=== PATIENT | female | born 1945 | race Caucasian/White ===

== ENCOUNTER 2016-11-26 12:24 | Emergency (ER) | payer MEDICARE, BC ==
[2016-11-26 12:36] VITALS: BP 152/71
[2016-11-26] MEDS ORDERED: fentaNYL 100 MCG/2 ML SDV IVPUSH ONE (12:56)
[2016-11-26] MEDS ORDERED: Metoclopramide 10 MG/2 ML SDV IVPUSH ONE (12:56)
[2016-11-26] MEDS ORDERED: Glucagon,Human Recombinant 1 MG Vial IVPUSH ONE (12:57)
[2016-11-26] MEDS ORDERED: Sodium Chloride 0.9% 1,000 ML IV SCH (13:00)
--- NOTE | 2016-11-26 13:04 | EDM.PDOC ---
ED HPI GI/ABDOMINAL - General Chief Complaint: Gastrointestinal Problem Stated Complaint: DIFFICULT SWOLLOWING,VOMITING Time Seen by Provider: 11/26/16 12:56 Source of Information: Reports: Patient History Limitations: Reports: No limitations - History of Present Illness INITIAL COMMENTS - FREE TEXT/NARRATIVE: 70-year-old female presents to the ED with obstructed distal esophagus. Patient has to be very careful how she eats for several years. This is felt to be likely due to scleroderma. She cuts her food up into very small pieces and drink slowly. She states last night she ate cottage cheese and pineapple and it became obstructed. Saliva came up a good portion of the night. She tried Jell- O this morning with small amount of yogurt but it came right back up. Associated pain central chest. Had upper GI endoscopy Dr. Hussein about 2 years ago. No stricture was apparently dilated at that time. It was done because of obstruction again. She has remained on pantoprazole since seeing Dr. Hussein 2 years ago. This is for the most part eliminated her GERD. Symptom Onset Date: 11/25/16 Symptom Onset Time: 18:00 Timing/Duration: Reports: Hour(s):, Sudden onset Location: other (Pain the stomach and lower retrosternal chest.) Quality: Reports: cramping, fullness Severity: moderate Improves with: Denies: defecating Worsens with: Reports: other Context: Denies: sick contact, bad/questionable food, out of country travel, recent surgery, recent trauma (Trying to drink anything or eat.) Associated Symptoms (-Female): Reports: denies other symptoms, other (History of the very small pieces of food due to food getting stuck in the lower esophagus for the last 2 years.). Denies: chest pain, back pain, groin pain, shoulder pain, constipation, diarrhea, bloody stools, fever/chills, loss of appetite, malaise, nausea/vomiting - Related Data Allergies/ADRs: Allergies Allergy/AdvReac Type Severity Reaction Status Date / Time No Known Allergies Allergy Verified 09/13/15 11:22 Home Meds: Home Meds Acetaminophen [Tylenol] 650 mg PO Q6HR PRN 09/13/15 [History] Baclofen 10 mg PO Q8HR PRN 09/13/15 [History] ClonazePAM [KlonoPIN] 0.5 mg PO BEDTIME 09/13/15 [History] Denosumab [Prolia] 60 mg SUBCUT ASDIRECTED 09/13/15 [History] Hydroxychloroquine Sulfate [Plaquenil] 200 mg PO DAILY 09/13/15 [History] NIFEdipine [Nifedipine ER] 30 mg PO DAILY 09/13/15 [History] Nortriptyline 50 mg PO DAILY 09/13/15 [History] Pantoprazole Sodium [Protonix] 40 mg PO BID 09/13/15 [History] Propylene Glycol/Peg 400 [Systane 0.3-0.4% Eye Drops] 1 drop EYEBOTH DAILY 09/13 [History] traMADol HCl [Ultram] 50 mg PO Q6HR PRN 09/13/15 [History] Letrozole [Femara] 1 tab PO DAILY 09/15/15 [History] Sertraline [Zoloft] 1 tab PO DAILY 09/15/15 [History] Past Medical History HEENT History: Reports: Impaired vision Other HEENT History: wears glasses, oral surgery, dysphagia Cardiovascular History: Reports: Other (see below) (Abnormal ECG suggesting an old anteroseptal myocardial infarction as well as an older peer wall myocardial infarction. Patient has no history of one myocardial infarction) Other Cardiovascular History: lower extremity edema Gastrointestinal History: Reports: Diverticulosis, GERD Other Gastrointestinal History: peptic ulcer disease, diaphramatic hernia, esophogeal ring, hematochezia, melena Musculoskeletal History: Reports: Fibromyalgia, Osteoarthritis, Osteoporosis, RA (Especially affecting her hands On plaquenil for scleroderma and RA.), Other (see below) (Scleroderma) Other Musculoskeletal History: reynauds phenomenon Hematologic History: Reports: Anemia Oncologic (Cancer) History: Reports: Breast, Other (see below) (Recurrence of endometrioma in her lower abdomen requiring radiation therapy last year. The endometrioma was compressing the iliac vessels causing edema of her left lower extremity. The tumor apparently has shrunk dramatically after radiation therapy. Diarrhea there was radiation induced is now much better.) Other Oncologic History: endometrial cancer grade I adenocarcinoma Dermatologic History: Reports: Scleroderma - Past Surgical History Cardiovascular Surgical History: Reports: Other (see below) (Port-A-Cath remains right upper anterior chest.) Other Female Surgeries/Procedures: L breast lumpectomy Other Musculoskeletal Surgeries/Procedures:: back surgery, foot surgery Social & Family History - Tobacco Use Smoking Status *Q: Never Smoker Second Hand Smoke Exposure: No - Caffeine Use Caffeine Use: Reports: Coffee - Alcohol Use Days Per Week of Alcohol Use: 0 Number of Drinks Per Day: 0 Total Drinks Per Week: 0 - Recreational Drug Use Recreational Drug Use: No Drug Use in Last 12 Months: No - Living Situation & Occupation Occupation: retired ED ROS GENERAL - Review of Systems Review Of Systems: See Below Constitutional: Denies: fever, chills, malaise, weakness, fatigue, decreased appetite, weight loss HEENT: Reports: No symptoms Respiratory: Reports: No Symptoms Cardiovascular: Reports: No symptoms Endocrine: Reports: no symptoms GI/Abdominal: Reports: Abdominal pain : Reports: frequency, other (Recurrence of endometrioma after having the uterus resected for endometriosis. It's caused compression of the left internal iliac vessels and edema of her left lower extremity about a year ago. She required extensive radiotherapy across her abdomen to shrink this tumor. So far the tumor has shown full regression..) Musculoskeletal: Reports: no symptoms Skin: Reports: no symptoms Neurological: Reports: No Symptoms Psychiatric: Reports: No symptoms Immunologic: Reports: no symptoms ED EXAM, GI/ABD - Physical Exam Exam: See Below Exam Limited By: No limitations General Appearance: alert, WD/WN, no apparent distress Eyes: bilateral: normal appearance (No jaundice) Throat/Mouth: Normal inspection, Normal lips, Normal teeth, Normal oropharynx Head: atraumatic, normocephalic Neck: normal inspection, supple, non-tender, full range of motion. No: carotid bruit, lymphadenopathy (L), lymphadenopathy (R), thyromegaly Respiratory/Chest: no respiratory distress, lungs clear, normal breath sounds, no accessory muscle use, chest non-tender, respiratory distress (Mild tachypnea due to being anxious.) Cardiovascular: normal peripheral pulses, regular rate, rhythm, no edema, no gallop, no murmur, tachycardia GI/Abdominal: normal bowel sounds, soft, non tender, no organomegaly, no abnormal bruit, no mass, tenderness (Only in the epigastrium and mild.) Back Exam: normal inspection, full range of motion. No: CVA tenderness (L), CVA tenderness (R) Extremities: normal inspection, normal range of motion, non-tender, no pedal edema, normal capillary refill Neurological: alert, oriented, CN II-XII intact, normal cognition, normal gait Psychiatric: normal affect, normal mood Skin Exam: Warm, Dry, Intact, Normal color, No rash Course - Vital Signs Last Recorded V/S: Last Vital Signs Temp 37.0 C 11/26/16 12:34 Pulse 102 H 11/26/16 12:34 Resp 20 11/26/16 12:34 BP 152/71 H 11/26/16 12:34 Pulse Ox 100 11/26/16 12:34 - Orders/Labs/Meds Orders: Active Orders 24 hr Category Date Time Status EKG Documentation Completion [RC] STAT Care 11/26/16 13:08 Active CBC WITH MANUAL DIFF [HEME] Stat Lab 11/26/16 13:20 Results COMPREHENSIVE METABOLIC PN,CMP [CHEM] Stat Lab 11/26/16 13:20 Received INR,PT,PROTHROMBIN TIME [COAG] Stat Lab 11/26/16 13:20 Received Sodium Chloride 0.9% [Normal Saline] 1,000 ml Med 11/26/16 13:00 Active IV ASDIRECTED Medication Orders Sodium Chloride (Normal Saline) 1,000 mls @ 150 mls/hr IV ASDIRECTED RASHID Last Admin: 11/26/16 13:22 Dose: 150 mls/hr Labs: Laboratory Tests 11/26/16 Range/Units 13:20 WBC 6.56 (3.98-10.04) K/mm3 RBC 4.36 (3.98-5.22) M/mm3 Hgb 11.8 (11.2-15.7) gm/L Hct 36.7 (34.1-44.9) % MCV 84.2 (79.4-94.8) fl MCH 27.1 (25.6-32.2) pg MCHC 32.2 (32.2-35.5) g/dl RDW Std Deviation 46.2 (36.4-46.3) fL Plt Count 288 (182-369) K/mm3 MPV 9.4 (9.4-12.3) fl Meds: Medications Generic Name Dose Route Start Last Admin Trade Name Freq PRN Reason Stop Dose Admin Sodium Chloride 1,000 mls @ 150 mls/hr 11/26/16 13:00 11/26/16 13:22 Normal Saline IV 150 mls/hr ASDIRECTED RASHID Administration Discontinued Medications Generic Name Dose Route Start Last Admin Trade Name Etelvina PRN Reason Stop Dose Admin Fentanyl 50 mcg 11/26/16 12:56 11/26/16 13:25 Sublimaze IVPUSH 11/26/16 12:57 50 mcg ONETIME ONE Administration Glucagon 1 mg 11/26/16 12:57 11/26/16 13:32 Glucagen IVPUSH 11/26/16 12:58 1 mg ONETIME ONE Administration Metoclopramide HCl 7.5 mg 11/26/16 12:56 11/26/16 13:22 Reglan IVPUSH 11/26/16 12:57 7.5 mg ONETIME ONE Administration - Radiology Interpretation Free Text/Narrative:: 70-year-old female presents to the ED with obstruction of the lower esophagus. She's had troubles for many years with food getting hung up or stuck in the lower part of the esophagus. She did have an EGD with Dr. Hussein about 2 years ago because of food bolus obstruction.. No recognized picture was identified at that time and certainly nothing that was suggested to be further dilated. Patient is very careful how she eats gets up her food into very small particles. Last night she was eating cottage cheese and pineapple. She developed esophageal obstruction which has failed to clear. Saliva is regurgitating back up she tried a small quantity of Jell-O and yogurt this morning and it came right back up as well. She is pain-free at present. She remains on pantoprazole daily since following up with Dr. Hussein 2 years ago and really has very little in the way of GERD symptoms. Plan Will try IV medications to see if we can open the esophagus. Given Reglan 7.5 mg IV with fentanyl 50 mcg IV followed by glucagon 1 mg IV and small dorsal clear pop. iF This fails I will call the surgeon. - Re-Assessments/Exams Free Text/Narrative Re-Assessment/Exam: 11/26/16 13:56 patient is now able to swallow without difficulties. She's drank a whole can of [place] clear pop without issue. Also able to takes water without any issue. She'll therefore be discharged from the ED. Advised strongly to follow up with Dr. Hussein in regards to repeat EGD to see how bad the stricture is and whether or not it can be dilated. Departure - Departure Time of Disposition: 13:58 Disposition: Home, Self-Care 01 Condition: fair Clinical Impression: Rheumatoid arthritis Impacted esophageal foreign body Qualifiers: Encounter type: initial encounter Qualified Code(s): T18.108A - Unspecified foreign body in esophagus causing other injury, initial encounter Referrals: Enoc Torres MD [Primary Care Provider] - Forms: ED Department Discharge Additional Instructions: Evaluation in the emergency room today in regards to obstruction of the lower part of your food pipe from food eaten last evening. This was pineapple and cottage cheese. Recognized chronic problem with having to eat small pieces of food and slowly so as to prevent obstruction of the food pipe. This is secondary to your disease process scleroderma. You're treated with medications in an effort to open up the lower part of the food pipe which did work in the report to drink quite freely before leaving the ED. Just today that he mostly that of fluid such as Jell-O ,yogurt ,milk shake and other soft diet until the swelling of the area goes down. I would suggest making appointments to see Dr. Hussein with a view to repeat upper GI endoscopy to see if there is a significant stricture at the distal aspect of the food pipe that could be dilated in in fact similar occurrences from occurring. - My Orders Last 24 Hours: My Active Orders 11/26/16 13:00 Sodium Chloride 0.9% [Normal Saline] 1,000 ml IV ASDIRECTED 11/26/16 13:08 EKG Documentation Completion [RC] STAT 11/26/16 13:20 CBC WITH MANUAL DIFF [HEME] Stat COMPREHENSIVE METABOLIC PN,CMP [CHEM] Stat INR,PT,PROTHROMBIN TIME [COAG] Stat - Assessment/Plan Last 24 Hours: My Active Orders 11/26/16 13:00 Sodium Chloride 0.9% [Normal Saline] 1,000 ml IV ASDIRECTED 11/26/16 13:08 EKG Documentation Completion [RC] STAT 11/26/16 13:20 CBC WITH MANUAL DIFF [HEME] Stat COMPREHENSIVE METABOLIC PN,CMP [CHEM] Stat INR,PT,PROTHROMBIN TIME [COAG] Stat
== END 2016-11-26 14:17 | disposition home or self-care (01) ==
LOC: JD.ED 12:24
DX: T18.108A Unspecified foreign body in esophagus causing other injury, initial encounter (principal); M06.9 Rheumatoid arthritis, unspecified; K21.9 Gastro-esophageal reflux disease without esophagitis; Z98.890 Other specified postprocedural states; Z79.899 Other long term (current) drug therapy; X58.XXXA Exposure to other specified factors, initial encounter
CPT/HCPCS: 36415; 80053; 85025; 85610; 93005; 96361; 96374; 96375; 99284; J1610; J2765; J3010; J7040

== ENCOUNTER 2017-01-05 11:16 | Emergency (ER) | payer MEDICARE, BC ==
[2017-01-05] MEDS ORDERED: Metoclopramide 10 MG/2 ML SDV IVPUSH ONE (12:01)
[2017-01-05] MEDS ORDERED: fentaNYL 100 MCG/2 ML SDV IVPUSH ONE ×2 (12:02→12:13)
--- NOTE | 2017-01-05 12:07 | EDM.PDOC ---
ED HPI GI/ABDOMINAL - General Chief Complaint: Gastrointestinal Problem Stated Complaint: CANT SWALLOW Time Seen by Provider: 01/05/17 12:00 Source of Information: Reports: Patient History Limitations: Reports: No limitations - History of Present Illness INITIAL COMMENTS - FREE TEXT/NARRATIVE: 71-year-old female presents to the ED with a foreign body stuck in her lower esophagus. She has retrosternal chest pain in the lower one third of the sternum. This is happened to her many times in the past. She her primary diagnosis is that of scleroderma. She states last night she had a small piece of steak that she felt get hung up for a period of time. She was able date sounds but some pieces of strawberries and fluids after this and felt that the obstruction had relieved itself. This morning she had cottage cheese for breakfast at 10:00. Since then she is regurgitated and vomited saliva and mucus. Nothing will go down at this time. I had seen her a month or so ago and we were able to relieve the obstruction with medication. Symptom Onset Date: 01/05/17 Symptom Onset Time: 10:00 Timing/Duration: Reports: Hour(s):, Sudden onset Location: other (Lower retrosternal chest and epigastrium) Quality: Reports: ache, fullness, other Severity: mild (Pressure) Improves with: Reports: other (Nothing makes it better. Vomiting relieves the symptoms.) Worsens with: Reports: other (Trying to swallow.) Context: Reports: other (Scleroderma affecting the esophagus). Denies: sick contact, bad/questionable food, out of country travel, recent trauma Associated Symptoms (-Female): Reports: denies other symptoms, chest pain. 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) - Related Data Allergies/ADRs: Allergies Allergy/AdvReac Type Severity Reaction Status Date / Time No Known Allergies Allergy Verified 01/05/17 11:39 Home Meds: Home Meds Acetaminophen [Tylenol] 650 mg PO Q6HR PRN 09/13/15 [History] Baclofen 10 mg PO Q8HR PRN 09/13/15 [History] ClonazePAM [KlonoPIN] 0.5 mg PO BEDTIME 09/13/15 [History] Denosumab [Prolia] 60 mg SUBCUT ASDIRECTED 09/13/15 [History] Hydroxychloroquine Sulfate [Plaquenil] 200 mg PO DAILY 09/13/15 [History] NIFEdipine [Nifedipine ER] 30 mg PO DAILY 09/13/15 [History] Nortriptyline 50 mg PO DAILY 09/13/15 [History] Pantoprazole Sodium [Protonix] 40 mg PO BID 09/13/15 [History] Propylene Glycol/Peg 400 [Systane 0.3-0.4% Eye Drops] 1 drop EYEBOTH DAILY 09/13 [History] traMADol HCl [Ultram] 50 mg PO Q6HR PRN 09/13/15 [History] Letrozole [Femara] 1 tab PO DAILY 09/15/15 [History] Sertraline [Zoloft] 1 tab PO DAILY 09/15/15 [History] Past Medical History HEENT History: Reports: Impaired vision Other HEENT History: wears glasses, oral surgery, dysphagia Cardiovascular History: Reports: Other (see below) Other Cardiovascular History: lower extremity edema Gastrointestinal History: Reports: Diverticulosis, GERD Other Gastrointestinal History: peptic ulcer disease, diaphramatic hernia, esophogeal ring, hematochezia, melena Musculoskeletal History: Reports: Fibromyalgia, Osteoarthritis, Osteoporosis, RA , Other (see below) Other Musculoskeletal History: reynauds phenomenon . 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 Hematologic History: Reports: Anemia Oncologic (Cancer) History: Reports: Breast (Left breast lumpectomy with sentinel node removal. Treated with radiation and chemotherapy.), Other (see below) Other Oncologic History: endometrial cancer grade I adenocarcinoma Dermatologic History: Reports: Scleroderma - Past Surgical History Other Female Surgeries/Procedures: L breast lumpectomy Other Musculoskeletal Surgeries/Procedures:: back surgery, foot surgery Social & Family History - Tobacco Use Smoking Status *Q: Never Smoker Second Hand Smoke Exposure: No - Caffeine Use Caffeine Use: Reports: Coffee - Alcohol Use Days Per Week of Alcohol Use: 0 Number of Drinks Per Day: 0 Total Drinks Per Week: 0 - Recreational Drug Use Recreational Drug Use: No Drug Use in Last 12 Months: No - Living Situation & Occupation Occupation: retired ED ROS GENERAL - Review of Systems Review Of Systems: See Below Constitutional: Denies: fever, chills, malaise, weakness, fatigue, decreased appetite, weight loss HEENT: Reports: No symptoms Respiratory: Reports: No Symptoms Cardiovascular: Reports: Chest pain Endocrine: Reports: no symptoms (See history present illness) GI/Abdominal: Reports: Abdominal pain (Mild in the epigastrium.). Denies: Anorexia, Black stool, Bloody stool : Reports: no symptoms Musculoskeletal: Reports: other (Generalized myalgia. She has scleroderma and fibromyalgia syndrome.) Neurological: Reports: No Symptoms Psychiatric: Reports: No symptoms Hematologic/Lymphatic: Reports: no symptoms Immunologic: Reports: no symptoms ED EXAM, GI/ABD - Physical Exam Exam: See Below Exam Limited By: No limitations General Appearance: alert, WD/WN, no apparent distress Eyes: bilateral: normal appearance Throat/Mouth: Normal inspection, Normal lips, Normal teeth, Normal oropharynx Head: atraumatic, normocephalic Neck: normal inspection, supple, non-tender, full range of motion. No: lymphadenopathy (L), lymphadenopathy (R) Respiratory/Chest: no respiratory distress, lungs clear, normal breath sounds, no accessory muscle use Cardiovascular: normal peripheral pulses, regular rate, rhythm, no edema, no gallop, no murmur, other (Her chest wall is tender to palpation with an hour of a periostitis around the ribs from osteoporosis.) GI/Abdominal: normal bowel sounds, soft, non tender, no organomegaly Course - Vital Signs Last Recorded V/S: Last Vital Signs Temp 37.1 C 01/05/17 11:39 Pulse 76 01/05/17 13:51 Resp 18 01/05/17 13:51 BP 126/78 01/05/17 13:51 Pulse Ox 96 01/05/17 13:51 - Orders/Labs/Meds Orders: Active Orders 24 hr Category Date Time Status Dextrose 5%-0.9% NaCl [Dextrose 5%-Normal Saline] 1,000 Med 01/05/17 12:15 Active ml IV ASDIRECTED Medication Orders Dextrose/Sodium Chloride (Dextrose 5%-Normal Saline) 1,000 mls @ 150 mls/hr IV ASDIRECTED RASHID Last Admin: 01/05/17 12:20 Dose: 150 mls/hr Meds: Medications Generic Name Dose Route Start Last Admin Trade Name Freq PRN Reason Stop Dose Admin Dextrose/Sodium Chloride 1,000 mls @ 150 mls/hr 01/05/17 12:15 01/05/17 12:20 Dextrose 5%-Normal Saline IV 150 mls/hr ASDIRECTED RASHID Administration Discontinued Medications Generic Name Dose Route Start Last Admin Trade Name Etelvina PRN Reason Stop Dose Admin Fentanyl 100 mcg 01/05/17 12:02 01/05/17 12:23 Sublimaze IVPUSH 01/05/17 12:03 Not Given ONETIME ONE Fentanyl 50 mcg 01/05/17 12:13 01/05/17 12:38 Sublimaze IVPUSH 01/05/17 12:14 50 mcg ONETIME ONE Administration Glucagon 1 mg 01/05/17 12:02 01/05/17 12:48 Glucagen IM 01/05/17 12:03 Not Given ONETIME ONE Glucagon 1 mg 01/05/17 12:41 01/05/17 12:48 Glucagen IVPUSH 01/05/17 12:42 1 mg ONETIME ONE Administration Metoclopramide HCl 10 mg 01/05/17 12:01 01/05/17 12:20 Reglan IVPUSH 01/05/17 12:02 10 mg ONETIME ONE Administration - Radiology Interpretation Free Text/Narrative:: 71-year-old female presents the ED with foreign body obstruction of her distal esophagus. This is occurred on many times to her in the past. She is awaiting consultation with Dr. Linda Hussein with a view to upper GI endoscopy and hopefully dilatation at the lower esophageal sphincter. This morning she had cottage cheese for breakfast about 10:00 and subsequently became obstructed. She has regurgitated large amount of mucus and saliva this morning and some of the cottage cheese but it's still nothing will pass through at this time. When I seen her on the 26 of November we will to open her up with glucagon and fentanyl. We'll try is similar to today. - Re-Assessments/Exams Free Text/Narrative Re-Assessment/Exam: 01/05/17 13:10: Patient esophageal foreign body symptoms have dissipated completely. She is able to drink the whole can of [place] without any problem swallowing. She'll be kept in the ED until the medications wear off particularly the fentanyl which will be close to an hour from the time and was given. She still his followup EGD with Dr. Hussein with a likely need for dilatation of the lower esophageal sphincter. Departure - Departure Time of Disposition: 13:21 Disposition: Home, Self-Care 01 Condition: fair Clinical Impression: Obstruction of distal esophagus due to foreign body Instructions: Esophageal Stricture Referrals: Enoc Torres MD [Primary Care Provider] - Forms: ED Department Discharge Additional Instructions: Evaluation in the emergency room today in regards to obstruction of the lower part of your esophagus once again. Recognized chronic problem with esophageal obstruction likely due to stricture at the lower esophageal sphincter. The motility of the esophagus is also affected by scleroderma. You're treated with medications in the ED once again to try and open up the lower esophageal sphincter and relieve the obstruction and once again it proved successful. You still need follow up with surgeon for a upper GI endoscopy and hopefully dilatation of the lower esophagus. - My Orders Last 24 Hours: My Active Orders 01/05/17 12:15 Dextrose 5%-0.9% NaCl [Dextrose 5%-Normal Saline] 1,000 ml IV ASDIRECTED - Assessment/Plan Last 24 Hours: My Active Orders 01/05/17 12:15 Dextrose 5%-0.9% NaCl [Dextrose 5%-Normal Saline] 1,000 ml IV ASDIRECTED
[2017-01-05] MEDS ORDERED: Dextrose 5%-0.9% NaCl 1,000 ML IV SCH (12:15)
[2017-01-05] MEDS ORDERED: Glucagon,Human Recombinant 1 MG Vial IVPUSH ONE (12:41)
[2017-01-05] MEDS: Glucagon,Human Recombinant 1 MG Vial IM ONE ×2 (12:46→12:48)
[2017-01-05 13:52] VITALS: BP 126/78
== END 2017-01-05 13:58 | disposition home or self-care (01) ==
LOC: JD.ED 11:16
DX: T18.128A Food in esophagus causing other injury, initial encounter (principal); X58.XXXA Exposure to other specified factors, initial encounter; M34.9 Systemic sclerosis, unspecified; Z79.899 Other long term (current) drug therapy; K21.9 Gastro-esophageal reflux disease without esophagitis; K44.9 Diaphragmatic hernia without obstruction or gangrene
CPT/HCPCS: 96361; 96374; 96375; 99284; J1610; J2765; J3010; J7042

== ENCOUNTER 2017-01-09 10:38 | Emergency (ER) | payer MEDICARE, BC ==
[2017-01-09 10:56] VITALS: BP 156/86
[2017-01-09] MEDS ORDERED: LORazepam 2 MG/ML MDV IVPUSH ONE (11:08)
[2017-01-09] MEDS ORDERED: Glucagon,Human Recombinant 1 MG Vial IVPUSH ONE (11:08)
--- NOTE | 2017-01-09 11:24 | EDM.PDOC ---
ED HPI GI/ABDOMINAL - General Chief Complaint: Gastrointestinal Problem Stated Complaint: TROUBLE SWALLOWING Time Seen by Provider: 01/09/17 10:59 Source of Information: Reports: Patient History Limitations: Reports: No limitations - History of Present Illness INITIAL COMMENTS - FREE TEXT/NARRATIVE: The patient presents with food stuck in her throat. The patient has had trouble with this the past 2 months. She has been here twice and medicine has helped. She is scheduled to see Dr Hussein in January. Over 2 years ago she had another episode and she needed to be scoped. She did not need to be dilated at that time. She was eating yogurt and she took her pills and that got stuck. She is spitting up and gagging on phlegm. She has no chest pain or abdominal pain. Timing/Duration: Reports: Minutes: Location: other (Esophageal) Context: Denies: sick contact, bad/questionable food, out of country travel, recent surgery, recent trauma, lifting, activity/exercise Associated Symptoms (-Female): Reports: denies other symptoms - Related Data Allergies/ADRs: Allergies Allergy/AdvReac Type Severity Reaction Status Date / Time No Known Allergies Allergy Verified 01/09/17 10:50 Home Meds: Home Meds Acetaminophen [Tylenol] 650 mg PO Q6HR PRN 09/13/15 [History] Baclofen 10 mg PO Q8HR PRN 09/13/15 [History] ClonazePAM [KlonoPIN] 0.5 mg PO BEDTIME 09/13/15 [History] Denosumab [Prolia] 60 mg SUBCUT ASDIRECTED 09/13/15 [History] Hydroxychloroquine Sulfate [Plaquenil] 200 mg PO DAILY 09/13/15 [History] NIFEdipine [Nifedipine ER] 30 mg PO DAILY 09/13/15 [History] Nortriptyline 50 mg PO DAILY 09/13/15 [History] Pantoprazole Sodium [Protonix] 40 mg PO BID 09/13/15 [History] Propylene Glycol/Peg 400 [Systane 0.3-0.4% Eye Drops] 1 drop EYEBOTH DAILY 09/13 [History] traMADol HCl [Ultram] 50 mg PO Q6HR PRN 09/13/15 [History] Letrozole [Femara] 1 tab PO DAILY 09/15/15 [History] Sertraline [Zoloft] 1 tab PO DAILY 09/15/15 [History] Past Medical History HEENT History: Reports: Impaired vision Other HEENT History: wears glasses, oral surgery, dysphagia Cardiovascular History: Reports: Other (see below) Other Cardiovascular History: lower extremity edema Gastrointestinal History: Reports: Diverticulosis, GERD Other Gastrointestinal History: peptic ulcer disease, diaphramatic hernia, esophogeal ring, hematochezia, melena Musculoskeletal History: Reports: Fibromyalgia, Osteoarthritis, Osteoporosis, RA , Other (see below) Other Musculoskeletal History: reynauds phenomenon . 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 Hematologic History: Reports: Anemia Oncologic (Cancer) History: Reports: Breast, Other (see below) Other Oncologic History: endometrial cancer grade I adenocarcinoma Dermatologic History: Reports: Scleroderma - Past Surgical History Other Female Surgeries/Procedures: L breast lumpectomy Other Musculoskeletal Surgeries/Procedures:: back surgery, foot surgery Social & Family History - Tobacco Use Smoking Status *Q: Never Smoker Second Hand Smoke Exposure: No - Caffeine Use Caffeine Use: Reports: Coffee - Alcohol Use Days Per Week of Alcohol Use: 0 Number of Drinks Per Day: 0 Total Drinks Per Week: 0 - Recreational Drug Use Recreational Drug Use: No Drug Use in Last 12 Months: No - Living Situation & Occupation Occupation: retired ED ROS GENERAL - Review of Systems Review Of Systems: See Below Constitutional: Reports: no symptoms HEENT: Reports: No symptoms Respiratory: Reports: No Symptoms Cardiovascular: Reports: No symptoms Endocrine: Reports: no symptoms GI/Abdominal: Reports: Difficulty swallowing (FB in esophagus). Denies: Abdominal pain, Diarrhea, Nausea, Vomiting : Reports: no symptoms Musculoskeletal: Reports: no symptoms Skin: Reports: no symptoms ED EXAM, GI/ABD - Physical Exam Exam: See Below Exam Limited By: No limitations General Appearance: alert, no apparent distress Ears: normal external exam Nose: normal inspection Throat/Mouth: Normal inspection Head: atraumatic, normocephalic Neck: normal inspection Respiratory/Chest: no respiratory distress, lungs clear, normal breath sounds Cardiovascular: regular rate, rhythm, no edema, no murmur GI/Abdominal: soft, non tender, no organomegaly, no mass Back Exam: normal inspection Extremities: normal inspection Course - Vital Signs Last Recorded V/S: Last Vital Signs Temp 98.7 F 01/09/17 10:50 Pulse 98 01/09/17 10:50 Resp 18 01/09/17 10:50 BP 156/86 H 01/09/17 10:50 Pulse Ox 99 01/09/17 10:50 - Orders/Labs/Meds Meds: Medications Discontinued Medications Generic Name Dose Route Start Last Admin Trade Name Etelvina PRN Reason Stop Dose Admin Glucagon 1 mg 01/09/17 11:08 01/09/17 11:42 Glucagen IVPUSH 01/09/17 11:09 1 mg ONETIME ONE Administration Lorazepam 0.5 mg 01/09/17 11:08 01/09/17 11:38 Ativan IVPUSH 01/09/17 11:09 0.5 mg ONETIME ONE Administration - Re-Assessments/Exams Free Text/Narrative Re-Assessment/Exam: 01/09/17 11:23 I ordered an IV saline lock, glucagon 1mg IV and ativan 0.5mg IV. 01/09/17 13:07 She was able to swallow and she feels better. I talked with Dr Mora and he can see her this week. He recommended a liquid diet for 2 to 3 days because there will be swelling. Departure - Departure Time of Disposition: 13:10 Disposition: Home, Self-Care 01 Condition: good Clinical Impression: Obstruction of distal esophagus due to foreign body Referrals: Enoc Torres MD [Primary Care Provider] - Gerber Mora MD [Physician] - 2 Days Forms: ED Department Discharge Additional Instructions: Do a liquid diet for [address] Mora's office tomorrow and let them know he wants to see her on Tuesday or . Please return if you are worse.
== END 2017-01-09 13:40 | disposition home or self-care (01) ==
LOC: JD.ED 10:38
DX: T18.128A Food in esophagus causing other injury, initial encounter (principal); Z79.899 Other long term (current) drug therapy; K21.9 Gastro-esophageal reflux disease without esophagitis
CPT/HCPCS: 96374; 96375; 99283; J1610; J2060; 99284

== ENCOUNTER 2017-02-02 09:54 | Day surgery (SDC) | payer MEDICARE, BC ==
[~2017-02-02 09:54] MED LIST: Lactated Ringers 1,000 ML IV SCH; Lidocaine 1%/Sod Bicarbonate in NS 8.4% 1 ML Syringe PRN; Sodium Chloride 0.9% 10 ML Syringe FLUSH PRN
--- NOTE | 2017-02-02 10:37 | PCM.PREANE ---
Preanesthetic Assessment - Procedure Proposed Procedure: Diagnostic EGD - Anesthesia/Transfusion/Family Hx Anesthesia History: Prior Anesthesia Without Reaction Family History of Anesthesia Reaction: No Transfusion History: No Prior Transfusion(s) Intubation History: Unknown - Review of Systems General: No Symptoms Pulmonary: No Symptoms Cardiovascular: No Symptoms Gastrointestinal: Difficulty swallowing, Other (GERD ) Neurological: No Symptoms Other: Reports: None, Depression, Anxiety - Physical Assessment NPO Status Date: 02/01/17 NPO Status Time: 20:00 O2 Sat by Pulse Oximetry: 98 Respiratory Rate: 16 Vital Signs: Last Vital Signs Temp 37.4 C 02/02/17 10:00 Pulse 96 02/02/17 10:00 Resp 16 02/02/17 10:00 BP 128/72 02/02/17 10:00 Pulse Ox 98 02/02/17 10:00 Height: 1.52 m Weight: 76.204 kg ASA Class: 3 Mental Status: Alert & Oriented x3 Airway Class: Mallampati = 2 Dentition: Reports: Normal Dentition Thyro-Mental Finger Breadths: 3 Mouth Opening Finger Breadths: 3 ROM/Head Extension: Limited/Partial Lungs: Clear to auscultation, Normal respiratory effort Cardiovascular: Regular Rate, Regular Rhythm - Allergies Allergies/Adverse Reactions: Allergies Allergy/AdvReac Type Severity Reaction Status Date / Time No Known Allergies Allergy Verified 02/01/17 14:36 - Blood Blood Available: No Product(s) Available: None - Acknowledgements Anesthesia Type Planned: MAC Pt an Appropriate Candidate for the Planned Anesthesia: Yes Alternatives and Risks of Anesthesia Discussed w Pt/Guardian: Yes Pt/Guardian Understands and Agrees with Anesthesia Plan: Yes PreAnesthesia Questionnaire HEENT History: Reports: Impaired Vision Other HEENT History: wears glasses, oral surgery, dysphagia Cardiovascular History: Reports: Other (See Below) Other Cardiovascular History: lower extremity edema Respiratory History: Reports: None Gastrointestinal History: Reports: Diverticulosis, GERD Other Gastrointestinal History: peptic ulcer disease, diaphramatic hernia, esophogeal ring, hematochezia, melena, esophagitis, gastric ulcer STUDIO ENGINEER History: Reports: , Spontaneous Musculoskeletal History: Reports: Arthritis, Fibromyalgia, Osteoarthritis, Osteoporosis, RA, Other (See Below) Other Musculoskeletal History: reynauds phenomenon . 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 Neurological History: Reports: None Psychiatric History: Reports: Anxiety, Depression Endocrine/Metabolic History: Reports: None Hematologic History: Reports: Anemia Immunologic History: Reports: None Oncologic (Cancer) History: Reports: Breast, Other (See Below) Other Oncologic History: endometrial cancer grade I adenocarcinoma Dermatologic History: Reports: Scleroderma - Past Surgical History HEENT Surgical History: Reports: Cataract Surgery Cardiovascular Surgical History: Reports: Other (See Below) GI Surgical History: Reports: Colonoscopy, EGD Female Surgical History: Reports: Hysterectomy, Tubal Ligation Other Female Surgeries/Procedures: L breast lumpectomy Other Musculoskeletal Surgeries/Procedures:: back surgery, foot surgery - SUBSTANCE USE Smoking Status *Q: Never Smoker Second Hand Smoke Exposure: No Days Per Week of Alcohol Use: 0 Number of Drinks Per Day: 0 Total Drinks Per Week: 0 Recreational Drug Use History: No - HOME MEDS Home Medications: Home Meds Baclofen 15 mg PO DAILY 09/13/15 [History] ClonazePAM [KlonoPIN] 0.5 - 1 tab PO BEDTIME 09/13/15 [History] Denosumab [Prolia] 60 mg SUBCUT ASDIRECTED 09/13/15 [History] Hydroxychloroquine Sulfate [Plaquenil] 200 mg PO DAILY 09/13/15 [History] NIFEdipine [Nifedipine ER] 30 mg PO DAILY 09/13/15 [History] Pantoprazole Sodium [Protonix] 40 mg PO BID 09/13/15 [History] traMADol HCl [Ultram] 50 mg PO Q6HR PRN 09/13/15 [History] Letrozole [Femara] 5 tab PO TH 09/15/15 [History] Sertraline [Zoloft] 100 mg PO DAILY 09/15/15 [History] - CURRENT (IN HOUSE) MEDS Current Meds: Current Medications Lactated Ringer's (Ringers, Lactated) 1,000 mls @ 125 mls/hr IV ASDIRECTED RASHID Stop: 02/02/17 23:00 Last Admin: 02/02/17 10:15 Dose: 125 mls/hr Lidocaine/Sodium Bicarbonate (Buffered Lidocaine 1% In Ns 8.4%) 0.25 ml .XX ONETIME PRN PRN Reason: Prior to IV Start Stop: 02/02/17 18:00 Last Admin: 02/02/17 10:14 Dose: 0.25 ml Sodium Chloride (Saline Flush) 10 ml FLUSH ASDIRECTED PRN PRN Reason: Keep Vein Open Stop: 02/02/17 18:00
[2017-02-02] MEDS ORDERED: Propofol 200 MG/20 ML SDV ONE (10:52)
--- NOTE | 2017-02-02 11:45 | PCM48HPAN ---
Post Anesthesia Note - EVALUATION WITHIN 48HRS OF ANESTHETIC Vital Signs in Normal Range: Yes Patient Participated in Evaluation: Yes Respiratory Function Stable: Yes Airway Patent: Yes Cardiovascular Function Stable: Yes Hydration Status Stable: Yes Pain Control Satisfactory: Yes Nausea and Vomiting Control Satisfactory: Yes Mental Status Recovered: Yes
--- NOTE | 2017-02-02 11:59 | PCM.OPNOTE ---
- General Post-Op/Procedure Note Date of Surgery/Procedure: 02/02/17 Operative Procedure(s): Esophagogastroduodenoscopy with distal esophageal biopsy x2, and gastric polypectomy x2. Possible esophageal biopsy x1. Findings: 1. moderate size hiatal hernia, sliding type 2. bile reflux, esophagitis 3. gastric polyposis, with all polyps, being less than 6 mm in size Pre Op Diagnosis: difficulty swallowing Post-Op Diagnosis: 1. bile reflux, esophagitis, secondary to duodenal gastric bilious reflux. 2. gastric polyposis. 3. sliding hiatal hernia Anesthesia Technique: MAC, Moderate sedation Primary Surgeon: Gerber Mora Pathology: 1. Proximal and distal esophageal biopsies 2. Gastric polypectomies x2 EBL in mLs: 0 Complications: None Condition: Good Free Text/Narrative:: After adequate IV sedation and analgesia was obtained the patient was placed on her left side. Through a bite block a lubricated upper endoscope was inserted into the esophagus and advanced to the stomach. Air was given here, followed by entry into the duodenum. The second, and first parts of the duodenum were endoscopically normal. The antrum was unremarkable as well. In the retroflexed view I could see the obvious sliding hiatal hernia, with multiple gastric polyps , scattered throughout the fundus, cardiac, and body of the stomach regions. The two largest were removed for histologic evaluation. There was obvious bile within the stomach and bile within the esophagus. There appeared to be stasis changes, secondary to bile within the lower esophagus. There was no stricturing. Biopsies were taken for histologic evaluation in the distal esophagus given her history of dysphagia and the endoscopic findings. I then withdrew the scope to the proximal third of the esophagus, where a biopsy was taken for review as well. Photographs were taken for the patient and for the record. Air was removed, as I finished the procedure, which she tolerated well. I will have her followup with her primary care, provider, for medical management.
[2017-02-02 12:28] VITALS: BP 143/93
== END 2017-02-02 12:30 | disposition home or self-care (01) ==
LOC: JD.SDS 09:54
PROVIDERS: ATTEND Surgery
DX: K20.9 Esophagitis, unspecified (principal); K31.7 Polyp of stomach and duodenum; K44.9 Diaphragmatic hernia without obstruction or gangrene; R13.10 Dysphagia, unspecified; C54.1 Malignant neoplasm of endometrium; C50.919 Malignant neoplasm of unspecified site of unspecified female breast; M81.0 Age-related osteoporosis without current pathological fracture; M06.9 Rheumatoid arthritis, unspecified
CPT/HCPCS: 43239; J7120; 00740; 88305; J2704

== ENCOUNTER 2017-03-07 19:57 | Emergency (ER) | payer MEDICARE, BC ==
[2017-03-07 20:20] VITALS: BP 158/77
[2017-03-07] MEDS ORDERED: Glucagon,Human Recombinant 1 MG Vial IVPUSH ONE (20:40)
--- NOTE | 2017-03-07 20:51 | EDM.PDOC ---
ED HPI GENERAL MEDICAL PROBLEM - General Chief Complaint: General Stated Complaint: HAS BEEN HAVING CHOCKING ISSUES Time Seen by Provider: 03/07/17 20:17 Source of Information: Reports: Patient, Old Records, RN Notes Reviewed History Limitations: Reports: No Limitations - History of Present Illness INITIAL COMMENTS - FREE TEXT/NARRATIVE: The patient states that she was eating dinner, consisting of potatoes, carrots, and cubed chicken, around 18:30. She states that she chewed a small piece of chicken and when she swallowed it, it feels like it is stuck in her throat. She states that whenever she tries to drink liquids, they don't come down. She states that she has been vomiting since this episode. The patient states that she has had similar episodes numerous times in the past , and that this is her fourth visit to the ED for the same thing. On all 3 previous visits, the patient had relief with IV glucagon. The patient has a history of scleroderma. She underwent an EGD on 02/02/[address] Mora, who following a moderate sliding hiatal hernia, bilious gastric reflux, and gastric polyposis. Biopsies were obtained and have returned negative. The patient tells me that she has a history of a Schatzki ring, however, no such esophageal stricture was found on 02/02/2017. I had the patient take a swallow of water for me, and she immediately regurgitated it. - Related Data Allergies Allergy/AdvReac Type Severity Reaction Status Date / Time No Known Allergies Allergy Verified 03/07/17 20:10 Home Meds: Home Meds Baclofen 15 mg PO DAILY 09/13/15 [History] ClonazePAM [KlonoPIN] 0.5 - 1 tab PO BEDTIME 09/13/15 [History] Denosumab [Prolia] 60 mg SUBCUT ASDIRECTED 09/13/15 [History] Hydroxychloroquine Sulfate [Plaquenil] 200 mg PO DAILY 09/13/15 [History] NIFEdipine [Nifedipine ER] 30 mg PO DAILY 09/13/15 [History] Pantoprazole Sodium [Protonix] 40 mg PO BID 09/13/15 [History] traMADol HCl [Ultram] 50 mg PO Q6HR PRN 09/13/15 [History] Letrozole [Femara] 5 tab PO TH 09/15/15 [History] Sertraline [Zoloft] 100 mg PO DAILY 09/15/15 [History] Past Medical History HEENT History: Reports: Impaired Vision Other HEENT History: wears glasses Gastrointestinal History: Reports: Diverticulosis, GERD, Hiatal Hernia Genitourinary History: Reports: Urinary Incontinence CARE PROFESSIONAL History: Reports: , Spontaneous Musculoskeletal History: Reports: RA Psychiatric History: Reports: Anxiety, Depression, Other (See Below) ( Fibromyalgia) Hematologic History: Reports: Anemia Immunologic History: Reports: Other (See Below) (Scleroderma, Raynaud phenomenon ) Oncologic (Cancer) History: Reports: Breast (left), Cervix, Uterine (in remission) - Past Surgical History HEENT Surgical History: Reports: Cataract Surgery GI Surgical History: Reports: Colonoscopy, EGD Female Surgical History: Reports: Hysterectomy, Salpingo-Oophorectomy, Other (See Below) (Left breast lumpectomy. Cervical laser.) Other Musculoskeletal Surgeries/Procedures:: back surgery, foot surgery Social & Family History - Tobacco Use Smoking Status *Q: Never Smoker Second Hand Smoke Exposure: No - Caffeine Use Caffeine Use: Reports: None - Alcohol Use Alcohol Use History: No Days Per Week of Alcohol Use: 0 Number of Drinks Per Day: 0 Total Drinks Per Week: 0 - Recreational Drug Use Recreational Drug Use: No - Living Situation & Occupation Living situation: Reports: , Alone Occupation: Retired ED ROS GENERAL - Review of Systems Review Of Systems: See Below Constitutional: Reports: No Symptoms HEENT: Reports: No Symptoms Respiratory: Reports: No Symptoms Cardiovascular: Reports: No Symptoms Endocrine: Reports: No Symptoms GI/Abdominal: Reports: Diarrhea (chronic) : Reports: No Symptoms Musculoskeletal: Reports: No Symptoms Skin: Reports: No Symptoms Neurological: Reports: No Symptoms Psychiatric: Reports: No Symptoms Hematologic/Lymphatic: Reports: No Symptoms Immunologic: Reports: No Symptoms ED EXAM, GENERAL - Physical Exam Exam: See Below Exam Limited By: No Limitations General Appearance: Alert, WD/WN, Mild Distress (frequent retching, small emesis ) Eye Exam: Bilateral Eye: Normal Inspection Ears: Normal External Exam, Hearing Grossly Normal Nose: Normal Inspection, No Blood Throat/Mouth: Normal Inspection, Normal Lips, Normal Voice, No Airway Compromise Head: Atraumatic, Normocephalic Neck: Normal Inspection, Full Range of Motion Respiratory/Chest: No Respiratory Distress, Lungs Clear, Normal Breath Sounds, No Accessory Muscle Use Cardiovascular: Normal Peripheral Pulses, Regular Rate, Rhythm, No Gallop, No JVD, No Murmur, No Rub Peripheral Pulses: 4+: Radial (L), Radial (R) GI/Abdominal: Normal Bowel Sounds, Soft, Non-Tender, No Organomegaly, No Distention, No Abnormal Bruit, No Mass, Other (Obese) (Female) Exam: Deferred Rectal (Female) Exam: Deferred Extremities: Normal Inspection, Normal Range of Motion, No Pedal Edema, Normal Capillary Refill Neurological: Alert, Oriented, Normal Cognition, No Motor/Sensory Deficits Psychiatric: Normal Affect Skin Exam: Warm, Dry, Intact, Normal Color, No Rash Course - Vital Signs Last Recorded V/S: Last Vital Signs Temp 36.9 C 03/07/17 20:10 Pulse 101 H 03/07/17 20:10 Resp 20 03/07/17 20:10 BP 158/77 H 03/07/17 20:10 Pulse Ox 100 03/07/17 20:10 - Orders/Labs/Meds Meds: Medications Discontinued Medications Generic Name Dose Route Start Last Admin Trade Name Etelvina PRN Reason Stop Dose Admin Glucagon 1 mg 03/07/17 20:40 03/07/17 21:01 Glucagen IVPUSH 03/07/17 20:41 1 mg ONETIME ONE Administration - Re-Assessments/Exams Free Text/Narrative Re-Assessment/Exam: 03/07/17 21:28 The patient was given glucagon 1 mg IV a few minutes ago, and while her symptoms have not entirely resolved, the sensation of something stuck in her throat has gradually decreased. She is now able to drink water without difficulty. I strongly suspect that the patient does not in fact have an impacted food bolus , rather, that she is suffering from the sensation of something stuck in her throat without anything actually being stuck in her throat. She regurgitated when trying to swallow water, yet was able to vomit liquids. The patient had improvement of her symptoms without a definitive swallowing or regurgitation of a piece of meat. No esophageal stricture was found on EGD. Lastly, this is the fourth time that she has had resolution of her symptoms with IV glucagon. While the current guidelines recommend trying glucagon, the studies acknowledge that the evidence of efficacy is poor. The recommendation is based on no likely harm. It would be unusual, then for a medicine that is of questionable benefit to have 100% effectiveness on this patient. I'm recommending that the patient follow-up with Dr. Torres to discuss modification of her anxiety medications. Departure - Departure Time of Disposition: 21:33 Disposition: Home, Self-Care 01 Condition: Good Clinical Impression: Sensation of foreign body in esophagus - Discharge Information Referrals: Enoc Torres MD [Primary Care Provider] - Forms: ED Department Discharge Additional Instructions: You were seen in the emergency room for the sensation of food being stuck in your throat. Your symptoms improved after being given IV glucagon. After reviewing your medical records, we feel that it is likely that you did not actually have food stuck in your throat, rather, that you had the SENSATION of food being stuck in your throat. This may be related to your underlying anxiety. We recommend you follow-up with Dr. Torres at the next available appointment to discuss modification of your anxiety medications. If any other problems, please do not hesitate to return to the ER.
== END 2017-03-07 21:45 | disposition home or self-care (01) ==
LOC: JD.ED 19:57
DX: R09.89 Other specified symptoms and signs involving the circulatory and respiratory systems (principal); K21.9 Gastro-esophageal reflux disease without esophagitis; F41.9 Anxiety disorder, unspecified; F32.9 Major depressive disorder, single episode, unspecified; Z79.899 Other long term (current) drug therapy; Z98.49 Cataract extraction status, unspecified eye; Z90.710 Acquired absence of both cervix and uterus
CPT/HCPCS: 96374; 99283; J1610; 99284

== ENCOUNTER 2017-08-05 20:29 | Emergency (ER) | payer MEDICARE, BC ==
[2017-08-05 20:42] VITALS: BP 138/83
[2017-08-05] MEDS ORDERED: Glucagon,Human Recombinant 1 MG Vial IVPUSH ONE (21:16)
[2017-08-05] MEDS ORDERED: LORazepam 2 MG/ML MDV IVPUSH ONE (21:16)
--- NOTE | 2017-08-05 22:02 | EDM.PDOC ---
ED HPI GENERAL MEDICAL PROBLEM - General Chief Complaint: ENT Problem Stated Complaint: POSS SOMETHING IN THROAT Time Seen by Provider: 08/05/17 21:00 Source of Information: Reports: Patient History Limitations: Reports: No Limitations - History of Present Illness INITIAL COMMENTS - FREE TEXT/NARRATIVE: 71 year old female presents for evaluation and treatment of a possible impacted food bolus. Patient reports at 1830 she ate some turkey. Since then she has had chest discomfort and has been unable to swallow her secretions. Currently reports chest pressure,, inability to swallow secretions and food bolus sensation in the esophagus. Patient has a past medical history of scleroderma. Review of her records show has has been seen for this 4 other time this year. Has always responded to glucagon, sometimes in combo with fentanyl and reglan or ativan. Patient reports last EGD was this year, reports a hietal hernia but not strictures, etc. She has been seeing GI and rheumatology for her sceleroderma. States she takes very small bites of food and drinks water before and after each bite. She often does not eat meat as this seems to be a problem for her when she eats meat. throat Pain Score (Numeric/FACES): 4 - Related Data Allergies Allergy/AdvReac Type Severity Reaction Status Date / Time No Known Allergies Allergy Verified 08/05/17 20:42 Home Meds: Home Meds Baclofen 15 mg PO DAILY 09/13/15 [History] ClonazePAM [KlonoPIN] 0.5 - 1 tab PO BEDTIME 09/13/15 [History] Denosumab [Prolia] 60 mg SUBCUT ASDIRECTED 09/13/15 [History] Hydroxychloroquine Sulfate [Plaquenil] 200 mg PO DAILY 09/13/15 [History] NIFEdipine [Nifedipine ER] 30 mg PO DAILY 09/13/15 [History] Pantoprazole Sodium [Protonix] 40 mg PO BID 09/13/15 [History] Letrozole [Femara] 1 tab PO DAILY 09/15/15 [History] Sertraline [Zoloft] 100 mg PO DAILY 09/15/15 [History] Nortriptyline 50 mg PO BEDTIME 08/05/17 [History] Propylene Glycol/Peg 400 [Systane 0.3-0.4% Eye Drops] 1 ml OP BID 08/05/17 [ History] Sucralfate [Carafate] 1 gm PO TID 08/05/17 [History] Past Medical History HEENT History: Reports: Impaired Vision Other HEENT History: wears glasses Cardiovascular History: Reports: Other (See Below) Other Cardiovascular History: lower extremity edema Respiratory History: Reports: None Gastrointestinal History: Reports: Diverticulosis, GERD, Hiatal Hernia, Other ( See Below) Other Gastrointestinal History: esophogeal strictures Genitourinary History: Reports: Urinary Incontinence 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 Neurological History: Reports: None Psychiatric History: Reports: Anxiety, Depression, Other (See Below) Endocrine/Metabolic History: Reports: None Hematologic History: Reports: Anemia Immunologic History: Reports: Other (See Below) Oncologic (Cancer) History: Reports: Breast, Cervix, Uterine Other Oncologic History: endometrial cancer grade I adenocarcinoma Dermatologic History: Reports: Scleroderma - Past Surgical History HEENT Surgical History: Reports: Cataract Surgery GI Surgical History: Reports: Colonoscopy, EGD Female Surgical History: Reports: Hysterectomy, Salpingo-Oophorectomy, Other (See Below) Other Musculoskeletal Surgeries/Procedures:: back surgery, foot surgery Social & Family History - Family History Family Medical History: Noncontributory - Tobacco Use Smoking Status *Q: Never Smoker Second Hand Smoke Exposure: No - Caffeine Use Caffeine Use: Reports: None - Alcohol Use Days Per Week of Alcohol Use: 0 Number of Drinks Per Day: 0 Total Drinks Per Week: 0 - Recreational Drug Use Recreational Drug Use: No Drug Use in Last 12 Months: No - Living Situation & Occupation Living situation: Reports: , Alone Occupation: Retired ED ROS ENT - Review of Systems Review Of Systems: See Below HEENT: Reports: Other (unable to swallow secretions; reports impacted food bolus sensation) Cardiovascular: Denies: Chest Pain (reports chest discomfort) ED EXAM, ENT - Physical Exam Exam: See Below Exam Limited By: No Limitations General Appearance: Alert, WD/WN, Anxious, Mild Distress Ears: Normal External Exam Nose: Normal Inspection Mouth/Throat: Normal Inspection, Normal Lips, Normal Teeth, Other ( approximately jorge sixed mass to the posterior hard palate; unable to swallow secretions) Respiratory/Chest: No Respiratory Distress, Lungs Clear, Normal Breath Sounds Cardiovascular: Normal Peripheral Pulses, Regular Rate, Rhythm, No Murmur Neurological: Alert, Oriented, Normal Cognition Psychiatric: Normal Affect, Normal Mood, Anxious Skin: Warm, Dry, Normal Color Course - Vital Signs Last Recorded V/S: Last Vital Signs Temp 36.3 C 08/05/17 20:37 Pulse 100 08/05/17 20:37 Resp 18 08/05/17 20:37 BP 138/83 08/05/17 20:37 Pulse Ox 96 08/05/17 20:37 - Orders/Labs/Meds Meds: Medications Discontinued Medications Generic Name Dose Route Start Last Admin Trade Name Etelvina PRN Reason Stop Dose Admin Glucagon 1 mg 08/05/17 21:16 08/05/17 21:26 Glucagen IVPUSH 08/05/17 21:17 1 mg ONETIME ONE Administration Lorazepam 0.5 mg 08/05/17 21:16 08/05/17 21:26 Ativan IVPUSH 08/05/17 21:17 0.5 mg ONETIME ONE Administration Metoclopramide HCl 10 mg 08/05/17 22:09 08/05/17 22:13 Reglan IVPUSH 08/05/17 22:10 10 mg ONETIME ONE Administration - Re-Assessments/Exams Free Text/Narrative Re-Assessment/Exam: 08/05/17 22:10 Checked on patient. Still unable to swallow secretions. 10mg IV reglan ordered. 08/05/17 22:52 Patient has been able to swallow her secretions for about 30 minutes now. She was sleeping when I entered the room. I gave her some Sprite and she was able to swallow this without any problem. She feels comfortable going home. We will discharge her home at this time. Discharge instructions as documented. Departure - Departure Time of Disposition: 22:52 Disposition: Home, Self-Care 01 Condition: Good Clinical Impression: Impacted esophageal foreign body Qualifiers: Encounter type: initial encounter Qualified Code(s): T18.108A - Unspecified foreign body in esophagus causing other injury, initial encounter - Discharge Information Instructions: Swallowed Foreign Body, Adult, [id number] Referrals: Enoc Torres MD [Primary Care Provider] - Forms: ED Department Discharge Additional Instructions: Continue with your current plan of care. Continue to take very small bites and take sips of water before and afterwards. Follow-up with your primary care provider and your specialist as needed. Please return to the ER if your symptoms change or worsen.
[2017-08-05] MEDS ORDERED: Metoclopramide 10 MG/2 ML SDV IVPUSH ONE (22:09)
== END 2017-08-05 23:00 | disposition home or self-care (01) ==
LOC: JD.ED 20:29
DX: T18.108A Unspecified foreign body in esophagus causing other injury, initial encounter (principal); Z79.899 Other long term (current) drug therapy; K21.9 Gastro-esophageal reflux disease without esophagitis
CPT/HCPCS: 96374; 96375; 99283; J1610; J2060; J2765; 99284

== ENCOUNTER 2018-02-04 14:40 | Emergency (ER) | payer MEDICARE, BC ==
[2018-02-04 15:26] VITALS: BP 142/98
--- NOTE | 2018-02-04 16:08 | EDM.PDOC ---
ED HPI GENERAL MEDICAL PROBLEM - General Chief Complaint: Skin Complaint Stated Complaint: SHINGLES/PAINFUL SKIN LESIONS Time Seen by Provider: 02/04/18 15:22 Source of Information: Reports: Patient History Limitations: Reports: No Limitations - History of Present Illness INITIAL COMMENTS - FREE TEXT/NARRATIVE: The patient presents with redness and pain to her face. She has been recently diagnosed with facial shingles that is affecting her right eye. She now has swelling and erythema to just below the left eye. She has no rash on that side. She also has pain. She saw her interior design program chair and another interior design program chair today and her left eye is not affected but her right eye is. She is on valacycliver but she needs something for pain and something for the facial redness. Onset: Gradual Duration: Day(s): Location: Reports: Face Quality: Reports: Sharp Severity: Moderate Improves with: Reports: None Worsens with: Reports: None Associated Symptoms: Reports: No Other Symptoms Right Face Pain Score (Numeric/FACES): 8 - Related Data Allergies Allergy/AdvReac Type Severity Reaction Status Date / Time No Known Allergies Allergy Verified 02/04/18 15:27 Home Meds: Home Meds Baclofen 15 mg PO DAILY 09/13/15 [History] ClonazePAM [KlonoPIN] 1 mg PO BEDTIME 09/13/15 [History] Hydroxychloroquine Sulfate [Plaquenil] 200 mg PO DAILY 09/13/15 [History] NIFEdipine [Nifedipine ER] 30 mg PO DAILY 09/13/15 [History] Pantoprazole Sodium [Protonix] 40 mg PO BID 09/13/15 [History] Sertraline [Zoloft] 100 mg PO DAILY 09/15/15 [History] Nortriptyline 50 mg PO BEDTIME 08/05/17 [History] Propylene Glycol/Peg 400 [Systane 0.3-0.4% Eye Drops] 1 drop EYEBOTH BID [History] Sucralfate [Carafate] 1 gm PO DAILY 08/05/17 [History] Cephalexin [Keflex] 500 mg PO Q8H #30 cap 02/04/18 [Rx] Hydrocodone/Acetaminophen [Hydrocodon-Acetaminophen 5-325] 1 - 2 each PO Q6HR PRN #20 tablet 02/04/18 [Rx] valACYclovir [Valtrex] 1,000 mg PO TID 02/04/18 [History] Past Medical History HEENT History: Reports: Impaired Vision Other HEENT History: wears glasses Cardiovascular History: Reports: Other (See Below) Other Cardiovascular History: lower extremity edema Respiratory History: Reports: None Gastrointestinal History: Reports: Diverticulosis, GERD, Hiatal Hernia, Other ( See Below) Other Gastrointestinal History: esophogeal strictures Genitourinary History: Reports: Urinary Incontinence 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 Neurological History: Reports: None Psychiatric History: Reports: Anxiety, Depression, Other (See Below) Endocrine/Metabolic History: Reports: None Hematologic History: Reports: Anemia Immunologic History: Reports: Other (See Below) Oncologic (Cancer) History: Reports: Breast, Cervix, Uterine Other Oncologic History: endometrial cancer grade I adenocarcinoma Dermatologic History: Reports: Scleroderma - Past Surgical History HEENT Surgical History: Reports: Cataract Surgery GI Surgical History: Reports: Colonoscopy, EGD Female Surgical History: Reports: Hysterectomy, Salpingo-Oophorectomy, Other (See Below) Other Musculoskeletal Surgeries/Procedures:: back surgery, foot surgery Social & Family History - Family History Family Medical History: Noncontributory - Tobacco Use Smoking Status *Q: Never Smoker - Caffeine Use Caffeine Use: Reports: None - Living Situation & Occupation Living situation: Reports: , Alone Occupation: Retired ED ROS GENERAL - Review of Systems Review Of Systems: See Below Constitutional: Reports: No Symptoms HEENT: Reports: Other (Facial pain and rash) Respiratory: Reports: No Symptoms Cardiovascular: Reports: No Symptoms Endocrine: Reports: No Symptoms GI/Abdominal: Reports: No Symptoms : Reports: No Symptoms Musculoskeletal: Reports: No Symptoms ED EXAM, SKIN/RASH Exam: See Below Exam Limited By: No Limitations General Appearance: Alert, No Apparent Distress Ears: Normal External Exam Nose: Normal Inspection Throat/Mouth: Normal Inspection Head: Other (Rash to the right side of her face with erythema and some edema of the eyelids. There is no rash to the left side of the face but she does have erythema.) Neck: Normal Inspection Respiratory/Chest: No Respiratory Distress, Lungs Clear, Normal Breath Sounds Cardiovascular: Regular Rate, Rhythm, No Edema, No Murmur GI/Abdominal: Soft, Non-Tender, No Organomegaly, No Mass Extremities: Normal Inspection Neurological: Alert, Oriented, No Motor/Sensory Deficits Course - Vital Signs Last Recorded V/S: Last Vital Signs Temp 100.5 F 02/04/18 15:22 Pulse 66 02/04/18 15:22 Resp 17 02/04/18 15:22 BP 142/98 H 02/04/18 15:22 Pulse Ox 95 02/04/18 15:22 - Re-Assessments/Exams Free Text/Narrative Re-Assessment/Exam: 02/04/18 16:10 She has facial cellulitis in addition to the shingles. I will get her on an antibiotic and something for pain. Departure - Departure Time of Disposition: 16:10 Disposition: Home, Self-Care 01 Condition: Good Clinical Impression: Shingles rash Qualifiers: Herpes zoster complications: with ocular involvement Herpes zoster ocular complication detail: keratitis Qualified Code(s): B02.33 - Zoster keratitis Cellulitis Qualifiers: Site of cellulitis: face Qualified Code(s): L03.211 - Cellulitis of face - Discharge Information Prescriptions: Hydrocodone/Acetaminophen [Hydrocodon-Acetaminophen 5-325] 1 - 2 each PO Q6HR PRN #20 tablet PRN Reason: Pain Cephalexin [Keflex] 500 mg PO Q8H #30 cap Referrals: Enoc Torres MD [Primary Care Provider] - 1 Week Additional Instructions: Take the medication as prescribed. Take the hydrocodone as needed for pain. Take the keflex 3 times per day for 10 days. Please return if you are worse.
== END 2018-02-04 16:34 | disposition home or self-care (01) ==
LOC: JD.ED 14:40
DX: L03.211 Cellulitis of face (principal); B02.33 Zoster keratitis; Z79.899 Other long term (current) drug therapy
CPT/HCPCS: 99283

== ENCOUNTER 2018-12-22 13:27 | Emergency (ER) | payer MEDICARE, BC ==
[2018-12-22 13:40] VITALS: BP 137/79
[2018-12-22] MEDS ORDERED: Morphine 10 MG/ML Syringe IM ONE (13:55)
--- NOTE | 2018-12-22 14:04 | EDM.PDOC ---
ED HPI GENERAL MEDICAL PROBLEM - General Chief Complaint: Respiratory Problem Stated Complaint: DIFFICULTY SWALLOWING Time Seen by Provider: 12/22/18 13:37 Source of Information: Reports: Patient, Old Records (ED visits 03/07/2017, 08/05), RN Notes Reviewed History Limitations: Reports: No Limitations - History of Present Illness INITIAL COMMENTS - FREE TEXT/NARRATIVE: The patient states that she developed the sensation of difficulty swallowing around 18:00 last night, while eating a salad. She had not eaten any meat. When the sensation developed, she stopped eating. The sensation that she has is something being stuck in her lower throat. She was able to take her pills this morning, but has a sensation like she might regurgitate something. She has not actually vomited. This is the patient's 6th visit to the ED for similar complaints. On prior evaluations, there were concerns that the patient had an impacted esophageal food bolus, however, the bolus always passed following IV glucagon. The patient states she has undergone only one EGD in the past. Medical records from that procedure on 02/02/2017 indicate that a sliding hiatal hernia and gastric polyposis were found, but no esophageal stricture. The patient states that her Blast Furnace Keeper Helper has her on pantoprazole twice a day, and that she has been essentially symptom-free ever since increasing to this dose from once a day about a year and a half ago. She last saw him about 2 weeks ago. Here in the ED, I asked the patient to drink a sip water, which she was able to do without difficulty. I then conducted the remainder of the history and physical examination, during which time she did not have a sensation of the need to vomit. The patient's PCP is Dr. Torres. The patient's Blast Furnace Keeper Helper is Dr. Ulises Elmore, at [facility]. - Related Data Allergies Allergy/AdvReac Type Severity Reaction Status Date / Time No Known Allergies Allergy Verified 12/22/18 13:33 Home Meds: Home Meds Baclofen 15 mg PO DAILY 09/13/15 [History] ClonazePAM [KlonoPIN] 1 mg PO BEDTIME 09/13/15 [History] Hydroxychloroquine Sulfate [Plaquenil] 200 mg PO DAILY 09/13/15 [History] NIFEdipine [Nifedipine ER] 30 mg PO DAILY 09/13/15 [History] Pantoprazole Sodium [Protonix] 40 mg PO BID 09/13/15 [History] Sertraline [Zoloft] 100 mg PO DAILY 09/15/15 [History] Nortriptyline 50 mg PO BEDTIME 08/05/17 [History] Propylene Glycol/Peg 400 [Systane 0.3-0.4% Eye Drops] 1 drop EYEBOTH BID [History] Sucralfate [Carafate] 1 gm PO DAILY 08/05/17 [History] Hydrocodone/Acetaminophen [Hydrocodon-Acetaminophen 5-325] 1 - 2 each PO Q6HR PRN #20 tablet 02/04/18 [Rx] cephALEXin [Keflex] 500 mg PO Q8H #30 cap 02/04/18 [Rx] valACYclovir [Valtrex] 1,000 mg PO TID 02/04/18 [History] Past Medical History HEENT History: Reports: Impaired Vision Other HEENT History: wears glasses Gastrointestinal History: Reports: Diverticulosis, GERD, Hiatal Hernia, Other ( See Below) (Gastric polyposis) Genitourinary History: Reports: Urinary Incontinence 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: , 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 Musculoskeletal History: Reports: RA Psychiatric History: Reports: Anxiety, Depression, Other (See Below) ( Fibromyalgia) Hematologic History: Reports: Anemia Immunologic History: Reports: Other (See Below) (Scleroderma, Raynaud phenomenon ) Oncologic (Cancer) History: Reports: Breast (left), Cervix, Uterine - Past Surgical History HEENT Surgical History: Reports: Cataract Surgery, Oral Surgery (wisdom teeth extraction) GI Surgical History: Reports: Colonoscopy (x 2), EGD (x 1) Female Surgical History: Reports: Hysterectomy, Salpingo-Oophorectomy, Other (See Below) (Cervical laser) Neurological Surgical History: Reports: Lumbar Spine Musculoskeletal Surgical History: Reports: Other (See Below) (Foot surgery) Oncologic Surgical History: Reports: Biopsy of Breast (left) Social & Family History - Family History Family Medical History: Noncontributory - Tobacco Use Smoking Status *Q: Never Smoker - Caffeine Use Caffeine Use: Reports: Tea - Alcohol Use Alcohol Use History: Yes Alcohol Use Frequency: Rarely - Recreational Drug Use Recreational Drug Use: No - Living Situation & Occupation Living situation: Reports: , Alone Occupation: Retired ED ROS GENERAL - Review of Systems Review Of Systems: ROS reveals no pertinent complaints other than HPI. ED EXAM, GENERAL - Physical Exam Exam: See Below Exam Limited By: No Limitations General Appearance: Alert, WD/WN, No Apparent Distress Eye Exam: Bilateral Eye: EOMI, Normal Inspection Ears: Normal External Exam, Hearing Grossly Normal Nose: Normal Inspection Throat/Mouth: Normal Inspection, Normal Lips, Normal Voice, No Airway Compromise Head: Atraumatic, Normocephalic Neck: Normal Inspection, Full Range of Motion Respiratory/Chest: No Respiratory Distress, Lungs Clear, Normal Breath Sounds, No Accessory Muscle Use Cardiovascular: Normal Peripheral Pulses, Regular Rate, Rhythm, No Gallop, No JVD, No Murmur, No Rub Peripheral Pulses: 4+: Radial (L), Radial (R) GI/Abdominal: Normal Bowel Sounds, Soft, Non-Tender, No Organomegaly, No Distention, No Abnormal Bruit, No Mass (Female) Exam: Deferred Rectal (Female) Exam: Deferred Back Exam: Normal Inspection, Full Range of Motion, NT Extremities: Normal Inspection, Normal Range of Motion, Normal Capillary Refill Neurological: Alert, Oriented, Normal Cognition, No Motor/Sensory Deficits Psychiatric: Normal Affect Skin Exam: Warm, Dry, Intact, Normal Color, No Rash Course - Vital Signs Last Recorded V/S: Last Vital Signs Temp 36.1 C 12/22/18 13:35 Pulse 58 L 12/22/18 13:35 Resp 20 12/22/18 13:35 BP 137/79 12/22/18 13:35 Pulse Ox 97 12/22/18 13:35 - Re-Assessments/Exams Free Text/Narrative Re-Assessment/Exam: 12/22/18 14:00 As per the HPI, when I asked the patient to take a sip of water, she was able to do so without difficulty, and she did not suffer any symptoms of regurgitation. Additionally, the patient stated that her symptoms began while she was eating salad, without any solid blocks of food, such as meat. From an emergency department standpoint, the question for me is whether or not the patient has an impacted esophageal food bolus, which she clearly does not. Her concern is of esophageal dysmotility, which is a chronic issue that I cannot help her with. I am recommending that she contact her Blast Furnace Keeper Helper in [place] for further guidance. Departure - Departure Time of Disposition: 14:02 Disposition: Home, Self-Care 01 Condition: Fair Clinical Impression: Esophageal dysmotility due to systemic disease - Discharge Information *PRESCRIPTION DRUG MONITORING PROGRAM REVIEWED*: Not Applicable *COPY OF PRESCRIPTION DRUG MONITORING REPORT IN PATIENT SIVA: Not Applicable Referrals: Enoc Torres MD [Primary Care Provider] - Ulises Elmore MD [Ordering Only Provider] - Forms: ED Department Discharge Additional Instructions: You were seen in the emergency room for the sensation of difficulty swallowing since 6:00 last night. On evaluation in the ER, you do not have anything stuck in your esophagus, therefore you do not need an emergency EGD (scope of the esophagus and stomach). Your symptoms appear to be due to esophageal dysmotility, likely related to your scleroderma. Unfortunately, nothing further can be done for this from the emergency department. We recommend that you contact your Blast Furnace Keeper Helper, Dr. Elmore, for further guidance. If any other problems, please do not hesitate to return to the ER.
== END 2018-12-22 14:33 | disposition home or self-care (01) ==
LOC: JD.ED 13:27
DX: K22.4 Dyskinesia of esophagus (principal); K21.9 Gastro-esophageal reflux disease without esophagitis; F41.9 Anxiety disorder, unspecified; F32.9 Major depressive disorder, single episode, unspecified; Z79.899 Other long term (current) drug therapy
CPT/HCPCS: 99281; 99283

== ENCOUNTER 2021-03-27 21:58 | Emergency (ER) | payer MEDICARE, BC ==
--- NOTE | 2021-03-27 23:02 | EDM.PDOC ---
ED HPI GENERAL MEDICAL PROBLEM - General Chief Complaint: ENT Problem Stated Complaint: UNABLE TO SWALLOW FOOD OR WATER IT COMES BACK UP Time Seen by Provider: 03/27/21 23:01 - History of Present Illness INITIAL COMMENTS - FREE TEXT/NARRATIVE: 75-year-old female presents the emergency room with swallowing difficulties. Patient has had problems with this in the past. She takes Protonix twice daily and this seems to have made it better. However 2 days ago she developed swallowing problems again. Patient has a significant history of scleroderma her cafe operator in the past at [place] has advised against dilation because of excessive disease secondary to the scleroderma making the esophagus very brittle. At times she can get small amounts of fluids to pass but she cannot get much of anything else to go through if she tries to drink too quickly comes back up any solid food comes back up. Patient denies any other complaints at this time. - Related Data Allergies Allergy/AdvReac Type Severity Reaction Status Date / Time No Known Allergies Allergy Verified 03/26/19 09:46 Home Meds: Home Meds Baclofen 15 mg PO DAILY 09/13/15 [History] ClonazePAM [KlonoPIN] 1 mg PO BEDTIME 09/13/15 [History] Hydroxychloroquine Sulfate [Plaquenil] 200 mg PO DAILY 09/13/15 [History] NIFEdipine [Nifedipine ER] 30 mg PO DAILY 09/13/15 [History] Pantoprazole Sodium [Protonix] 40 mg PO BID 09/13/15 [History] Sertraline [Zoloft] 100 mg PO DAILY 09/15/15 [History] Nortriptyline 50 mg PO BEDTIME 08/05/17 [History] Propylene Glycol/Peg 400 [Systane 0.3-0.4% Eye Drops] 1 drop EYEBOTH BID 08/05/17 [History] Cyanocobalamin (Vitamin B12) [Vitamin B13] 0 mcg PO DAILY 03/26/19 [History] Ferrous Sulfate 325 mg PO DAILY 03/26/19 [History] Past Medical History HEENT History: Reports: Impaired Vision Other HEENT History: wears glasses. Pt reports having swallowing issues from the scleroderma. Cardiovascular History: Reports: Other (See Below) Other Cardiovascular History: lower extremity edema Respiratory History: Reports: None Gastrointestinal History: Reports: Diverticulosis, GERD, Hiatal Hernia, Other (See Below) Other Gastrointestinal History: Pt reports having bleeding ulcer in the esophagus. Genitourinary History: Reports: Urinary Incontinence [employer] REPAIRER History: Reports: , 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 Neurological History: Reports: None Psychiatric History: Reports: Anxiety, Depression, Other (See Below) Endocrine/Metabolic History: Reports: None Hematologic History: Reports: Anemia Immunologic History: Reports: Other (See Below) Oncologic (Cancer) History: Reports: Breast, Cervix, Uterine Other Oncologic History: endometrial cancer grade I adenocarcinoma Dermatologic History: Reports: Scleroderma - Infectious Disease History Infectious Disease History: Reports: Chicken Pox, Measles, Mumps, Pertussis (Whooping Cough), Shingles - Past Surgical History HEENT Surgical History: Reports: Cataract Surgery, Oral Surgery Cardiovascular Surgical History: Reports: Other (See Below) GI Surgical History: Reports: Colonoscopy, EGD Female Surgical History: Reports: Hysterectomy, Salpingo-Oophorectomy, Other (See Below) Other Female Surgeries/Procedures: L breast lumpectomy Neurological Surgical History: Reports: Lumbar Spine Musculoskeletal Surgical History: Reports: None, Shoulder Surgery, Other (See Below) Other Musculoskeletal Surgeries/Procedures:: back surgery, foot surgery Oncologic Surgical History: Reports: Biopsy of Breast Social & Family History - Family History Family Medical History: No Pertinent Family History - Tobacco Use Tobacco Use Status *Q: Never Tobacco User - Caffeine Use Caffeine Use: Reports: Coffee, Tea - Recreational Drug Use Recreational Drug Use: No - Living Situation & Occupation Living situation: Reports: , Alone Occupation: Retired ED ROS GENERAL - Review of Systems Review Of Systems: See Below Constitutional: Reports: No Symptoms HEENT: Reports: No Symptoms Respiratory: Reports: No Symptoms Cardiovascular: Reports: No Symptoms GI/Abdominal: Reports: Difficulty Swallowing, Vomiting (If she tries to drink anything other than sips or tries to eat). Denies: Abdominal Pain, Constipation, Distension : Reports: No Symptoms Musculoskeletal: Reports: No Symptoms Skin: Reports: No Symptoms Neurological: Reports: No Symptoms ED EXAM, GENERAL - Physical Exam Exam: See Below Exam Limited By: No Limitations General Appearance: Alert, No Apparent Distress Throat/Mouth: Normal Inspection, Normal Lips, Normal Gums, Normal Oropharynx, Normal Voice, No Airway Compromise Head: Atraumatic, Normocephalic Neck: Normal Inspection, Supple, Non-Tender, Full Range of Motion Respiratory/Chest: No Respiratory Distress, Lungs Clear, Normal Breath Sounds Cardiovascular: Regular Rate, Rhythm, No Edema, No Murmur GI/Abdominal: Normal Bowel Sounds, Soft, Non-Tender Extremities: Normal Inspection, No Pedal Edema Neurological: Alert, Oriented, Normal Cognition Skin Exam: Warm, Dry, Intact Course - Vital Signs Last Recorded V/S: Last Vital Signs Temp 36.4 C 03/27/21 22:32 Pulse 122 H 03/27/21 22:32 Resp 20 03/27/21 22:32 BP 162/99 H 03/27/21 22:32 Pulse Ox 88 L 03/27/21 22:32 - Orders/Labs/Meds Orders: Active Orders 24 hr Category Date Time Status COMPREHENSIVE METABOLIC PN,CMP [CHEM] Stat Lab 03/27/21 23:57 Received LIPASE [CHEM] Stat Lab 03/27/21 23:57 Received Labs: Laboratory Tests 03/28/21 Range/Units 00:15 WBC 5.68 (3.98-10.04) K/mm3 RBC 4.21 (3.98-5.22) M/mm3 Hgb 11.3 (11.2-15.7) gm/dl Hct 35.5 (34.1-44.9) % MCV 84.3 (79.4-94.8) fl MCH 26.8 (25.6-32.2) pg MCHC 31.8 L (32.2-35.5) g/dl RDW Std Deviation 49.3 H (36.4-46.3) fL Plt Count 234 (182-369) K/mm3 MPV 9.4 (9.4-12.3) fl Neut % (Auto) 64.3 (34.0-71.1) % Lymph % (Auto) 21.8 (19.3-51.7) % Bullock % (Auto) 10.7 (4.7-12.5) % Eos % (Auto) 2.8 (0.7-5.8) Baso % (Auto) 0.2 (0.1-1.2) % Neut # (Auto) 3.65 (1.56-6.13) K/mm3 Lymph # (Auto) 1.24 (1.18-3.74) K/mm3 Bullock # (Auto) 0.61 H (0.24-0.36) K/mm3 Eos # (Auto) 0.16 (0.04-0.36) K/mm3 Baso # (Auto) 0.01 (0.01-0.08) K/mm3 Meds: Medications Discontinued Medications Generic Name Dose Route Start Last Admin Trade Name Etelvina PRN Reason Stop Dose Admin Glucagon 1 mg 03/27/21 23:57 03/28/21 00:27 Glucagon,Human Recombinant 1 Mg Vial IVPUSH 03/27/21 23:58 1 mg ONETIME ONE Administration Ondansetron HCl 4 mg 03/27/21 23:57 03/28/21 00:27 Ondansetron 4 Mg/2 Ml Sdv IVPUSH 03/27/21 23:58 4 mg ONETIME ONE Administration - Re-Assessments/Exams Free Text/Narrative Re-Assessment/Exam: 03/28/21 01:14 Patient received IV fluids labs were checked nondiagnostic she is a little on the dry side. Patient was trialed on glucagon and is feeling much better at this time she is able to drink small amounts of fluids without difficulty. At this time she like to try going home and get some rest she understands she needs to call her cafe operator first thing Tuesday. Departure - Departure Time of Disposition: 01:15 Disposition: Home, Self-Care 01 Clinical Impression: Swallowing difficulty, Esophagitis - Discharge Information Referrals: Enoc Torres MD [Primary Care Provider] - Forms: ED Department Discharge Additional Instructions: Return to the emergency room with any questions problems or worsening symptoms. Follow-up with your cafe operator first thing Tuesday.. Take your medication with sips of water and be gentle with your fluid stick with sips for now but always be sipping on something. Sepsis Event Note (ED) - Evaluation Sepsis Screening Result: No Definite Risk - Focused Exam Vital Signs: Vital Signs Temp Pulse Resp BP Pulse Ox 03/27/21 22:32 36.4 C 122 H 20 162/99 H 88 L - My Orders Last 24 Hours: My Active Orders 03/27/21 23:57 COMPREHENSIVE METABOLIC PN,CMP [CHEM] Stat LIPASE [CHEM] Stat - Assessment/Plan Last 24 Hours: My Active Orders 03/27/21 23:57 COMPREHENSIVE METABOLIC PN,CMP [CHEM] Stat LIPASE [CHEM] Stat
[2021-03-27] MEDS ORDERED: Glucagon,Human Recombinant 1 MG Vial IVPUSH ONE (23:57)
[2021-03-27] MEDS ORDERED: Ondansetron 4 MG/2 ML SDV IVPUSH ONE (23:57)
[2021-03-28 02:00] VITALS: BP 140/98; PULSE 76
== END 2021-03-28 01:55 | disposition home or self-care (01) ==
LOC: JD.ED 21:58
DX: K20.90 Esophagitis, unspecified without bleeding (principal); Z79.899 Other long term (current) drug therapy
CPT/HCPCS: 36415; 80053; 83690; 85025; 96374; 96375; 99284; J1610; J2405; 99283

== ENCOUNTER 2023-02-06 03:31 | Inpatient (IN) | payer MEDICARE, BC ==
[2023-02-06 04:59] LABS: BASOPHILS ABSOLUTE AUTO 0.11 K/mm3 (0.01-0.08); EOSINOPHILS ABSOLUTE AUTO 0.01 K/mm3 (0.04-0.36); EOSINOPHILS PERCENT AUTO 0.1 (0.7-5.8); HEMATOCRIT 32.9 % (34.1-44.9); IMMATURE GRAN ABSOLUTE AUTO 0.49 K/mm3 (0.00-0.10); IMMATURE GRAN PERCENT AUTO 4.3 % (<=1.0); LYMPHOCYTES ABSOLUTE AUTO 1.96 K/mm3 (1.18-3.74); MEAN CORPUSCULAR HEMOGLOBIN 28.9 pg (25.6-32.2); MEAN CORPUSCULAR HGB CONC 33.4 g/dl (32.2-35.5); MEAN CORPUSCULAR VOLUME 86.6 fl (79.4-94.8); MEAN PLATELET VOLUME 9.5 fl (9.4-12.3); MONOCYTES ABSOLUTE AUTO 0.99 K/mm3 (0.24-0.36); MONOCYTES PERCENT AUTO 8.6 % (4.7-12.5); NEUTROPHILS ABSOLUTE AUTO 7.96 K/mm3 (1.56-6.13); PLATELET COUNT,PLT 240 K/mm3 (182-369); WHITE BLOOD CELL COUNT,WBC 11.52 K/mm3 (3.98-10.04)
[2023-02-06 05:18] LABS: A/G RATIO 0.5 (1-2); ALANINE AMINOTRANSFERASE,ALT 31 U/L (14-59); ALBUMIN 2.4 g/dl (3.4-5.0); ALKALINE PHOSPHATASE 100 U/L (46-116); ANION GAP 20.7 (5-15); ASPARTATE AMNIOTRANSFERASE,AST 25 U/L (15-37); BILIRUBIN TOTAL 0.5 mg/dL (0.2-1.0); BLOOD UREA NITROGEN,BUN 40 mg/dL (7-18); BUN/CREATININE RATIO 26.7 (14-18); CALCIUM 10.8 mg/dL (8.5-10.1); CARBON DIOXIDE,CO2 20 mEq/L (21-32); CHLORIDE,CL 99 mEq/L (98-107); CREATININE 1.5 mg/dL (0.55-1.02); ESTIMATED GFR 35 mL/min (>60); GLUCOSE RANDOM 111 mg/dL (70-99); POTASSIUM,K 3.7 mEq/L (3.5-5.1); PROTEIN TOTAL,TP 7.4 g/dl (6.4-8.2); SODIUM,NA 136 mEq/L (136-145)
[2023-02-06 05:23] LABS: SLIDE REVIEW ABNORMAL SMEAR
[2023-02-06 06:59] LABS: APPEARANCE,URINE CLEAR (Clear); BILIRUBIN,URINE 1+ (Negative); COLOR,URINE YELLOW (Yellow); GLUCOSE,URINE NEGATIVE (Negative); KETONES,URINE 1+ (Negative); LEUKOCYTE ESTERASE,URINE NEGATIVE (Negative); NITRITE,URINE NEGATIVE (Negative); OCCULT BLOOD,URINE NEGATIVE (Negative); PROTEIN,URINE 2+ (Negative); UROBILINOGEN,URINE 0.2 (0.2-1.0)
[2023-02-06 07:26] LABS: AMORPHOUS SEDIMENT,URINE FEW /hpf (NOT SEEN); BACTERIA,URINE MODERATE /hpf (FEW); HYALINE CASTS,URINE 0-5 /lpf (0-5); MUCUS,URINE MODERATE /hpf (FEW); RBC,URINE 0-5 /hpf (0-5); SQUAMOUS EPITHELIAL CELLS,UR 0-5 /hpf (0-5); WBC,URINE 0-5 /hpf (0-5)
[2023-02-06] MEDS ORDERED: HYDROmorphone 0.5 MG/0.5 ML Syringe IVPUSH ONE (07:52)
[2023-02-06] MEDS ORDERED: Acetaminophen/HYDROcodone 325-5 MG Tab PO ONE (07:57)
[2023-02-06] MEDS ORDERED: Ketorolac 30 MG/ML SDV IM ONE (07:57)
[2023-02-06] MEDS ORDERED: Sodium Chloride 0.9% 10 ML Syringe FLUSH PRN (10:22)
[2023-02-06] MEDS ORDERED: hydrALAZINE 20 MG/ML SDV IVPUSH PRN (14:31)
[2023-02-06] MEDS ORDERED: Psyllium Husk Powder Sugar Free 5.85 GM Packet PO PRN (14:31)
[2023-02-06] MEDS ORDERED: Ondansetron 4 MG/2 ML SDV IVPUSH PRN (14:31)
[2023-02-06] MEDS: HYDROmorphone 0.5 MG/0.5 ML Syringe IVPUSH PRN ×2 (15:09→22:56)
[2023-02-06] MEDS: Heparin Sodium 5,000 Units/ML Vial SUBCUT SCH ×2 (15:26→22:55)
[2023-02-06] MEDS: Hydroxychloroquine 200 MG Tab PO SCH (15:27)
[2023-02-06] MEDS: Multivitamin Tab PO SCH (15:27)
[2023-02-06] MEDS: Sertraline 50 MG Tab PO SCH (15:27)
[2023-02-06] MEDS: Carboxymethylcellulose Sodium 1% Ophth Gel 15 ML Bottle EYEBOTH SCH ×2 (15:28→20:47)
[2023-02-06] MEDS: Pantoprazole 40 MG Tab.CR PO SCH ×2 (15:28→20:48)
[2023-02-06] MEDS: Lidocaine 4% 1 each Patch TOP SCH ×2 (15:28→15:37)
[2023-02-06] MEDS: Sodium Chloride 0.9% 1,000 ML IV SCH (20:42)
[2023-02-06] MEDS: Nortriptyline 25 MG Cap PO SCH (20:48)
[2023-02-06] MEDS: ClonazePAM 1 MG Tab PO SCH (20:48)
[2023-02-07] MEDS: HYDROmorphone 0.5 MG/0.5 ML Syringe IVPUSH PRN ×3 (03:11→18:05)
[2023-02-07 05:26] LABS: BASOPHILS ABSOLUTE AUTO 0.06 K/mm3 (0.01-0.08); BASOPHILS PERCENT AUTO 0.8 % (0.1-1.2); EOSINOPHILS ABSOLUTE AUTO 0.02 K/mm3 (0.04-0.36); EOSINOPHILS PERCENT AUTO 0.3 (0.7-5.8); HEMOGLOBIN 10.2 gm/dl (11.2-15.7); IMMATURE GRAN ABSOLUTE AUTO 0.32 K/mm3 (0.00-0.10); LYMPHOCYTES PERCENT AUTO 13.8 % (19.3-51.7); MEAN CORPUSCULAR HEMOGLOBIN 28.7 pg (25.6-32.2); MEAN CORPUSCULAR HGB CONC 32.9 g/dl (32.2-35.5); MEAN CORPUSCULAR VOLUME 87.1 fl (79.4-94.8); MEAN PLATELET VOLUME 9.9 fl (9.4-12.3); MONOCYTES ABSOLUTE AUTO 1.65 K/mm3 (0.24-0.36); MONOCYTES PERCENT AUTO 20.7 % (4.7-12.5); NEUTROPHILS ABSOLUTE AUTO 4.81 K/mm3 (1.56-6.13); NEUTROPHILS PERCENT AUTO 60.4 % (34.0-71.1); PLATELET COUNT,PLT 216 K/mm3 (182-369); RED BLOOD CELL COUNT 3.56 M/mm3 (3.98-5.22); WHITE BLOOD CELL COUNT,WBC 7.96 K/mm3 (3.98-10.04)
[2023-02-07 05:50] LABS: ANION GAP 13.5 (5-15); BUN/CREATININE RATIO 31.8 (14-18); CALCIUM 10.1 mg/dL (8.5-10.1); CREATININE 1.1 mg/dL (0.55-1.02); EST CRCL DRUG DOSING (CG) 29.79 mL/min; POTASSIUM,K 3.5 mEq/L (3.5-5.1)
[2023-02-07] MEDS: Heparin Sodium 5,000 Units/ML Vial SUBCUT SCH ×3 (06:10→23:15)
[2023-02-07] MEDS: Acetaminophen/oxyCODONE 325-5 MG Tab PO PRN ×2 (06:11→14:20)
[2023-02-07 06:26] LABS: SLIDE REVIEW ABNORMAL SMEAR
[2023-02-07] MEDS: Pantoprazole 40 MG Tab.CR PO SCH ×2 (08:26→20:52)
[2023-02-07] MEDS: Multivitamin Tab PO SCH (08:26)
[2023-02-07] MEDS: Sertraline 50 MG Tab PO SCH (08:26)
[2023-02-07] MEDS: Ferrous Sulfate 324 MG Tab.EC PO SCH (08:26)
[2023-02-07] MEDS: Hydroxychloroquine 200 MG Tab PO SCH (08:26)
[2023-02-07] MEDS: Lidocaine 4% 1 each Patch TOP SCH (08:26)
[2023-02-07] MEDS: Baclofen 10 MG Tab PO SCH (08:26)
[2023-02-07] MEDS: Acetaminophen 325 MG Tab PO PRN ×2 (08:31→17:07)
[2023-02-07] MEDS: Sodium Chloride 0.9% 1,000 ML IV SCH ×2 (09:55→20:59)
[2023-02-07] MEDS: Carboxymethylcellulose Sodium 1% Ophth Gel 15 ML Bottle EYEBOTH SCH ×2 (09:55→20:53)
[2023-02-07] MEDS: Nortriptyline 25 MG Cap PO SCH (20:53)
[2023-02-07] MEDS: ClonazePAM 1 MG Tab PO SCH (20:53)
[2023-02-08] MEDS: Acetaminophen/oxyCODONE 325-5 MG Tab PO PRN ×4 (00:13→20:06)
[2023-02-08] MEDS: HYDROmorphone 0.5 MG/0.5 ML Syringe IVPUSH PRN ×6 (00:13→22:15)
[2023-02-08] MEDS: Acetaminophen 325 MG Tab PO PRN ×3 (00:13→20:07)
[2023-02-08 06:05] LABS: ANION GAP 12.7 (5-15); CALCIUM 9.8 mg/dL (8.5-10.1); EST CRCL DRUG DOSING (CG) 32.77 mL/min; POTASSIUM,K 3.7 mEq/L (3.5-5.1)
[2023-02-08 06:14] LABS: BASOPHILS ABSOLUTE AUTO 0.07 K/mm3 (0.01-0.08); BASOPHILS PERCENT AUTO 0.9 % (0.1-1.2); EOSINOPHILS ABSOLUTE AUTO 0.03 K/mm3 (0.04-0.36); EOSINOPHILS PERCENT AUTO 0.4 (0.7-5.8); HEMATOCRIT 30.2 % (34.1-44.9); HEMOGLOBIN 9.7 gm/dl (11.2-15.7); IMMATURE GRAN ABSOLUTE AUTO 0.38 K/mm3 (0.00-0.10); IMMATURE GRAN PERCENT AUTO 4.9 % (<=1.0); LYMPHOCYTES PERCENT AUTO 10.3 % (19.3-51.7); MEAN CORPUSCULAR HEMOGLOBIN 28.4 pg (25.6-32.2); MEAN CORPUSCULAR HGB CONC 32.1 g/dl (32.2-35.5); MEAN CORPUSCULAR VOLUME 88.3 fl (79.4-94.8); MEAN PLATELET VOLUME 10.1 fl (9.4-12.3); MONOCYTES ABSOLUTE AUTO 1.81 K/mm3 (0.24-0.36); MONOCYTES PERCENT AUTO 23.4 % (4.7-12.5); NEUTROPHILS ABSOLUTE AUTO 4.66 K/mm3 (1.56-6.13); NEUTROPHILS PERCENT AUTO 60.1 % (34.0-71.1); PLATELET COUNT,PLT 202 K/mm3 (182-369); RED BLOOD CELL COUNT 3.42 M/mm3 (3.98-5.22); WHITE BLOOD CELL COUNT,WBC 7.75 K/mm3 (3.98-10.04)
[2023-02-08] MEDS: Heparin Sodium 5,000 Units/ML Vial SUBCUT SCH ×3 (06:15→22:16)
[2023-02-08] MEDS: Sertraline 50 MG Tab PO SCH (08:40)
[2023-02-08] MEDS: Hydroxychloroquine 200 MG Tab PO SCH (08:40)
[2023-02-08] MEDS: Lidocaine 4% 1 each Patch TOP SCH (08:40)
[2023-02-08] MEDS: Pantoprazole 40 MG Tab.CR PO SCH ×2 (08:40→20:07)
[2023-02-08] MEDS: Baclofen 10 MG Tab PO SCH (08:40)
[2023-02-08] MEDS: Ferrous Sulfate 324 MG Tab.EC PO SCH (08:40)
[2023-02-08] MEDS: Multivitamin Tab PO SCH (08:40)
[2023-02-08 10:11] LABS: SLIDE REVIEW ABNORMAL SMEAR
[2023-02-08] MEDS: Carboxymethylcellulose Sodium 1% Ophth Gel 15 ML Bottle EYEBOTH SCH ×2 (10:19→20:12)
[2023-02-08] MEDS: Sodium Chloride 0.9% 1,000 ML IV SCH ×2 (10:35→22:15)
[2023-02-08] MEDS ORDERED: fentaNYL 12 MCG/HR Transdermal Patch TRDERM SCH (12:30)
[2023-02-08] MEDS: fentaNYL 12 MCG/HR Transdermal Patch TRDERM SCH (13:37)
[2023-02-08] MEDS: Nortriptyline 25 MG Cap PO SCH (20:07)
[2023-02-08] MEDS: ClonazePAM 1 MG Tab PO SCH (20:07)
[2023-02-09 06:08] LABS: BASOPHILS ABSOLUTE AUTO 0.08 K/mm3 (0.01-0.08); BASOPHILS PERCENT AUTO 0.9 % (0.1-1.2); EOSINOPHILS ABSOLUTE AUTO 0.02 K/mm3 (0.04-0.36); EOSINOPHILS PERCENT AUTO 0.2 (0.7-5.8); HEMOGLOBIN 9.2 gm/dl (11.2-15.7); IMMATURE GRAN ABSOLUTE AUTO 0.59 K/mm3 (0.00-0.10); IMMATURE GRAN PERCENT AUTO 6.8 % (<=1.0); LYMPHOCYTES ABSOLUTE AUTO 1.99 K/mm3 (1.18-3.74); LYMPHOCYTES PERCENT AUTO 22.8 % (19.3-51.7); MEAN CORPUSCULAR HEMOGLOBIN 28.4 pg (25.6-32.2); MEAN CORPUSCULAR HGB CONC 31.7 g/dl (32.2-35.5); MEAN CORPUSCULAR VOLUME 89.5 fl (79.4-94.8); MEAN PLATELET VOLUME 9.9 fl (9.4-12.3); MONOCYTES ABSOLUTE AUTO 1.23 K/mm3 (0.24-0.36); MONOCYTES PERCENT AUTO 14.1 % (4.7-12.5); NEUTROPHILS ABSOLUTE AUTO 4.81 K/mm3 (1.56-6.13); NEUTROPHILS PERCENT AUTO 55.2 % (34.0-71.1); PLATELET COUNT,PLT 201 K/mm3 (182-369); RED BLOOD CELL COUNT 3.24 M/mm3 (3.98-5.22); WHITE BLOOD CELL COUNT,WBC 8.72 K/mm3 (3.98-10.04)
[2023-02-09] MEDS: Acetaminophen/oxyCODONE 325-5 MG Tab PO PRN ×3 (06:19→20:44)
[2023-02-09] MEDS: Heparin Sodium 5,000 Units/ML Vial SUBCUT SCH ×3 (06:19→22:23)
[2023-02-09] MEDS: HYDROmorphone 0.5 MG/0.5 ML Syringe IVPUSH PRN ×7 (06:19→22:58)
[2023-02-09 06:34] LABS: ANION GAP 14.1 (5-15); CALCIUM 10.3 mg/dL (8.5-10.1); CREATININE 1.2 mg/dL (0.55-1.02); EST CRCL DRUG DOSING (CG) 27.3 mL/min; POTASSIUM,K 4.1 mEq/L (3.5-5.1)
[2023-02-09 07:58] LABS: SLIDE REVIEW ABNORMAL SMEAR
[2023-02-09] MEDS: NIFEdipine 30 MG Tab.ER PO SCH (09:18)
[2023-02-09] MEDS: Baclofen 10 MG Tab PO SCH (09:18)
[2023-02-09] MEDS: Lidocaine 4% 1 each Patch TOP SCH (09:18)
[2023-02-09] MEDS: Carboxymethylcellulose Sodium 1% Ophth Gel 15 ML Bottle EYEBOTH SCH ×2 (09:19→22:16)
[2023-02-09] MEDS: Pantoprazole 40 MG Tab.CR PO SCH ×2 (09:19→20:44)
[2023-02-09] MEDS: Ferrous Sulfate 324 MG Tab.EC PO SCH (09:19)
[2023-02-09] MEDS: Hydroxychloroquine 200 MG Tab PO SCH (09:19)
[2023-02-09] MEDS: Sertraline 50 MG Tab PO SCH (09:19)
[2023-02-09] MEDS: Multivitamin Tab PO SCH (09:19)
[2023-02-09] MEDS: Sodium Chloride 0.9% 1,000 ML IV SCH (12:04)
[2023-02-09] MEDS: ClonazePAM 1 MG Tab PO SCH (20:45)
[2023-02-09] MEDS: Nortriptyline 25 MG Cap PO SCH (20:55)
[2023-02-10] MEDS: Sodium Chloride 0.9% 1,000 ML IV SCH (00:17)
[2023-02-10] MEDS: Acetaminophen/oxyCODONE 325-5 MG Tab PO PRN ×4 (01:30→23:25)
[2023-02-10] MEDS: HYDROmorphone 0.5 MG/0.5 ML Syringe IVPUSH PRN ×2 (01:35→05:25)
[2023-02-10 06:10] LABS: BASOPHILS ABSOLUTE AUTO 0.11 K/mm3 (0.01-0.08); BASOPHILS PERCENT AUTO 0.9 % (0.1-1.2); EOSINOPHILS ABSOLUTE AUTO 0.05 K/mm3 (0.04-0.36); EOSINOPHILS PERCENT AUTO 0.4 (0.7-5.8); HEMATOCRIT 29.2 % (34.1-44.9); HEMOGLOBIN 9.5 gm/dl (11.2-15.7); IMMATURE GRAN ABSOLUTE AUTO 1.83 K/mm3 (0.00-0.10); IMMATURE GRAN PERCENT AUTO 15.4 % (<=1.0); LYMPHOCYTES ABSOLUTE AUTO 1.13 K/mm3 (1.18-3.74); LYMPHOCYTES PERCENT AUTO 9.5 % (19.3-51.7); MEAN CORPUSCULAR HEMOGLOBIN 29.1 pg (25.6-32.2); MEAN CORPUSCULAR HGB CONC 32.5 g/dl (32.2-35.5); MEAN CORPUSCULAR VOLUME 89.6 fl (79.4-94.8); MEAN PLATELET VOLUME 9.9 fl (9.4-12.3); MONOCYTES ABSOLUTE AUTO 3.63 K/mm3 (0.24-0.36); MONOCYTES PERCENT AUTO 30.5 % (4.7-12.5); NEUTROPHILS ABSOLUTE AUTO 5.15 K/mm3 (1.56-6.13); NEUTROPHILS PERCENT AUTO 43.3 % (34.0-71.1); PLATELET COUNT,PLT 229 K/mm3 (182-369); RED BLOOD CELL COUNT 3.26 M/mm3 (3.98-5.22)
[2023-02-10 06:27] LABS: ANION GAP 14.5 (5-15); BUN/CREATININE RATIO 24.3 (14-18); CALCIUM 10.6 mg/dL (8.5-10.1); CREATININE 1.4 mg/dL (0.55-1.02); EST CRCL DRUG DOSING (CG) 23.4 mL/min; POTASSIUM,K 4.5 mEq/L (3.5-5.1)
[2023-02-10] MEDS: Heparin Sodium 5,000 Units/ML Vial SUBCUT SCH ×3 (07:27→23:29)
[2023-02-10 08:38] LABS: APPEARANCE,URINE CLEAR (Clear); BILIRUBIN,URINE NEGATIVE (Negative); COLOR,URINE YELLOW (Yellow); GLUCOSE,URINE NEGATIVE (Negative); KETONES,URINE NEGATIVE (Negative); LEUKOCYTE ESTERASE,URINE NEGATIVE (Negative); NITRITE,URINE NEGATIVE (Negative); OCCULT BLOOD,URINE NEGATIVE (Negative); PH,URINE 5.5 (5.0-8.0); PROTEIN,URINE 1+ (Negative); UROBILINOGEN,URINE 0.2 (0.2-1.0)
[2023-02-10 09:09] LABS: BACTERIA,URINE MODERATE /hpf (FEW); EPITHELIAL CELLS,URINE NOT SEEN /hpf (0-5); HYALINE CASTS,URINE 0-5 /lpf (0-5); MUCUS,URINE MODERATE /hpf (FEW); RBC,URINE 0-5 /hpf (0-5); WBC,URINE NOT SEEN /hpf (0-5)
[2023-02-10 09:19] LABS: SLIDE REVIEW ABNORMAL SMEAR
[2023-02-10 09:21] LABS: URIC ACID 5.7 mg/dL (2.6-6.0)
[2023-02-10 09:32] LABS: C-REACTIVE PROTEIN 26.7 mg/dL (<1.0)
[2023-02-10] MEDS: NIFEdipine 30 MG Tab.ER PO SCH (09:38)
[2023-02-10] MEDS: Sertraline 50 MG Tab PO SCH (09:39)
[2023-02-10] MEDS: Hydroxychloroquine 200 MG Tab PO SCH (09:39)
[2023-02-10] MEDS: Baclofen 10 MG Tab PO SCH (09:39)
[2023-02-10] MEDS: Ferrous Sulfate 324 MG Tab.EC PO SCH (09:39)
[2023-02-10] MEDS: Pantoprazole 40 MG Tab.CR PO SCH (09:39)
[2023-02-10] MEDS: Multivitamin Tab PO SCH (09:39)
[2023-02-10] MEDS: Lidocaine 4% 1 each Patch TOP SCH (09:39)
[2023-02-10] MEDS: predniSONE 20 MG Tab PO SCH ×2 (09:39→23:30)
[2023-02-10] MEDS: Colchicine 0.6 MG Tab PO SCH ×2 (09:39→23:30)
[2023-02-10] MEDS: Carboxymethylcellulose Sodium 1% Ophth Gel 15 ML Bottle EYEBOTH SCH (09:40)
[2023-02-10] MEDS: Acetaminophen 325 MG Tab PO PRN (14:16)
[2023-02-10] MEDS: Nortriptyline 25 MG Cap PO SCH (23:28)
[2023-02-10] MEDS: ClonazePAM 1 MG Tab PO SCH (23:28)
[2023-02-11] MEDS: Carboxymethylcellulose Sodium 1% Ophth Gel 15 ML Bottle EYEBOTH SCH ×3 (00:32→20:05)
[2023-02-11] MEDS: Pantoprazole 40 MG Tab.CR PO SCH ×3 (00:32→20:05)
[2023-02-11] MEDS: Sodium Chloride 0.9% 1,000 ML IV SCH ×2 (03:09→14:55)
[2023-02-11] MEDS: Acetaminophen/oxyCODONE 325-5 MG Tab PO PRN ×4 (03:10→19:17)
[2023-02-11] MEDS: Heparin Sodium 5,000 Units/ML Vial SUBCUT SCH ×2 (06:32→14:07)
[2023-02-11 06:35] LABS: INR 1.09; PROTHROMBIN TIME 11.6 SECONDS (9.7-12.0)
[2023-02-11 06:36] LABS: ANION GAP 11.4 (5-15); CALCIUM 10.6 mg/dL (8.5-10.1); CREATININE 0.8 mg/dL (0.55-1.02); EST CRCL DRUG DOSING (CG) 40.96 mL/min; POTASSIUM,K 4.4 mEq/L (3.5-5.1)
[2023-02-11 06:37] LABS: PTT,PARTIAL THROMBOPLSTIN TIME 29.6 SECONDS (21.7-31.4)
[2023-02-11 06:40] LABS: HEMATOCRIT 29.6 % (34.1-44.9); HEMOGLOBIN 9.4 gm/dl (11.2-15.7); MEAN CORPUSCULAR HEMOGLOBIN 28.2 pg (25.6-32.2); MEAN CORPUSCULAR HGB CONC 31.8 g/dl (32.2-35.5); MEAN CORPUSCULAR VOLUME 88.9 fl (79.4-94.8); MEAN PLATELET VOLUME 10.4 fl (9.4-12.3); PLATELET COUNT,PLT 214 K/mm3 (182-369); RED BLOOD CELL COUNT 3.33 M/mm3 (3.98-5.22); WHITE BLOOD CELL COUNT,WBC 12.16 K/mm3 (3.98-10.04)
[2023-02-11 08:03] LABS: BAND PERCENT MAN 10 % (0-10); BASOPHILS PERCENT MAN 0 (0.1-1.2); EOSINOPHILS PERCENT MAN 0 % (0.7-5.8); LYMPHOCYTES % ATYPICAL MANUAL 1 %; LYMPHOCYTES PERCENT MAN 8 % (20-40); METAMYELOCYTE PERCENT MAN 2; MONOCYTES PERCENT MAN 13 % (2-10); MYELOCYTE PERCENT MAN 2
[2023-02-11 08:05] LABS: ANISOCYTOSIS 2+ MODERATE; PLATELET COUNT ESTIMATE ADEQUATE; POLYCHROMASIA 1+ SLIGHT; ROULEAUX 2+ MODERATE; TOXIC GRANULATION 1+ SLIGHT
[2023-02-11 08:17] LABS: AMORPHOUS SEDIMENT,URINE MODERATE /hpf (NOT SEEN)
[2023-02-11] MEDS: Baclofen 10 MG Tab PO SCH (08:32)
[2023-02-11] MEDS: Sertraline 50 MG Tab PO SCH (08:32)
[2023-02-11] MEDS: Colchicine 0.6 MG Tab PO SCH ×2 (08:32→20:04)
[2023-02-11] MEDS: Ferrous Sulfate 324 MG Tab.EC PO SCH (08:33)
[2023-02-11] MEDS: Hydroxychloroquine 200 MG Tab PO SCH (08:33)
[2023-02-11] MEDS: Multivitamin Tab PO SCH (08:33)
[2023-02-11] MEDS: NIFEdipine 30 MG Tab.ER PO SCH (08:34)
[2023-02-11] MEDS: predniSONE 20 MG Tab PO SCH ×2 (08:34→20:04)
[2023-02-11] MEDS: Lidocaine 4% 1 each Patch TOP SCH (08:35)
[2023-02-11 11:46] LABS: RHEUMATOID FACTOR 12 IU/mL (0-14)
[2023-02-11] MEDS: fentaNYL 12 MCG/HR Transdermal Patch TRDERM SCH (13:00)
[2023-02-11] MEDS: Acetaminophen 325 MG Tab PO PRN (13:41)
[2023-02-11] MEDS ORDERED: HYDROmorphone 0.5 MG/0.5 ML Syringe IVPUSH ONE ×2 (16:33→18:47)
[2023-02-11] MEDS: Nortriptyline 25 MG Cap PO SCH (20:04)
[2023-02-11] MEDS: ClonazePAM 1 MG Tab PO SCH (20:05)
[2023-02-12] MEDS: Heparin Sodium 5,000 Units/ML Vial SUBCUT SCH ×4 (00:25→22:55)
[2023-02-12] MEDS: Docusate Sodium 100 MG Cap PO PRN ×2 (00:26→10:10)
[2023-02-12] MEDS: Acetaminophen 325 MG Tab PO PRN ×2 (00:26→17:49)
[2023-02-12] MEDS: Acetaminophen/oxyCODONE 325-5 MG Tab PO PRN ×3 (02:04→21:19)
[2023-02-12] MEDS: Sodium Chloride 0.9% 1,000 ML IV SCH ×2 (06:36→18:44)
[2023-02-12] MEDS: Hydroxychloroquine 200 MG Tab PO SCH (10:10)
[2023-02-12] MEDS: NIFEdipine 30 MG Tab.ER PO SCH (10:10)
[2023-02-12] MEDS: Ferrous Sulfate 324 MG Tab.EC PO SCH (10:11)
[2023-02-12] MEDS: Lidocaine 4% 1 each Patch TOP SCH (10:11)
[2023-02-12] MEDS: Baclofen 10 MG Tab PO SCH (10:11)
[2023-02-12] MEDS: Pantoprazole 40 MG Tab.CR PO SCH ×2 (10:11→21:19)
[2023-02-12] MEDS: Sertraline 50 MG Tab PO SCH (10:11)
[2023-02-12] MEDS: Colchicine 0.6 MG Tab PO SCH ×2 (10:11→21:20)
[2023-02-12] MEDS: Multivitamin Tab PO SCH (10:11)
[2023-02-12] MEDS: Carboxymethylcellulose Sodium 1% Ophth Gel 15 ML Bottle EYEBOTH SCH ×2 (10:19→21:21)
[2023-02-12] MEDS ORDERED: HYDROmorphone 0.5 MG/0.5 ML Syringe IVPUSH ONE (19:54)
[2023-02-12] MEDS: QUEtiapine 25 MG Tab PO SCH ×2 (20:17→21:21)
[2023-02-12] MEDS: ClonazePAM 1 MG Tab PO SCH (21:19)
[2023-02-12] MEDS: Nortriptyline 25 MG Cap PO SCH (21:20)
[2023-02-12] MEDS ORDERED: LORazepam 2 MG/ML SDV IVPUSH ONE (22:42)
[2023-02-13] MEDS: Acetaminophen/oxyCODONE 325-5 MG Tab PO PRN ×5 (01:30→21:03)
[2023-02-13 05:27] LABS: BASOPHILS ABSOLUTE AUTO 0.15 K/mm3 (0.01-0.08); EOSINOPHILS ABSOLUTE AUTO 0.07 K/mm3 (0.04-0.36); EOSINOPHILS PERCENT AUTO 0.5 (0.7-5.8); HEMATOCRIT 26.9 % (34.1-44.9); HEMOGLOBIN 8.5 gm/dl (11.2-15.7); IMMATURE GRAN ABSOLUTE AUTO 2.12 K/mm3 (0.00-0.10); IMMATURE GRAN PERCENT AUTO 14.1 % (<=1.0); LYMPHOCYTES ABSOLUTE AUTO 1.71 K/mm3 (1.18-3.74); LYMPHOCYTES PERCENT AUTO 11.4 % (19.3-51.7); MEAN CORPUSCULAR HGB CONC 31.6 g/dl (32.2-35.5); MEAN CORPUSCULAR VOLUME 88.5 fl (79.4-94.8); MEAN PLATELET VOLUME 10.2 fl (9.4-12.3); MONOCYTES ABSOLUTE AUTO 4.12 K/mm3 (0.24-0.36); MONOCYTES PERCENT AUTO 27.5 % (4.7-12.5); NEUTROPHILS ABSOLUTE AUTO 6.82 K/mm3 (1.56-6.13); NEUTROPHILS PERCENT AUTO 45.5 % (34.0-71.1); PLATELET COUNT,PLT 183 K/mm3 (182-369); RED BLOOD CELL COUNT 3.04 M/mm3 (3.98-5.22); WHITE BLOOD CELL COUNT,WBC 14.99 K/mm3 (3.98-10.04)
[2023-02-13 05:44] LABS: ANION GAP 12.5 (5-15); BUN/CREATININE RATIO 41.4 (14-18); CREATININE 0.7 mg/dL (0.55-1.02); EST CRCL DRUG DOSING (CG) 46.81 mL/min; POTASSIUM,K 3.5 mEq/L (3.5-5.1)
[2023-02-13 06:15] LABS: SLIDE REVIEW ABNORMAL SMEAR
[2023-02-13] MEDS: Heparin Sodium 5,000 Units/ML Vial SUBCUT SCH ×3 (06:22→23:08)
[2023-02-13] MEDS: Lidocaine 4% 1 each Patch TOP SCH (09:45)
[2023-02-13] MEDS: Multivitamin Tab PO SCH (09:46)
[2023-02-13] MEDS: Docusate Sodium 100 MG Cap PO PRN (09:46)
[2023-02-13] MEDS: Baclofen 10 MG Tab PO SCH (09:46)
[2023-02-13] MEDS: Ferrous Sulfate 324 MG Tab.EC PO SCH (09:46)
[2023-02-13] MEDS: Pantoprazole 40 MG Tab.CR PO SCH ×2 (09:46→20:31)
[2023-02-13] MEDS: Hydroxychloroquine 200 MG Tab PO SCH (09:46)
[2023-02-13] MEDS: NIFEdipine 30 MG Tab.ER PO SCH (09:46)
[2023-02-13] MEDS: QUEtiapine 25 MG Tab PO SCH (09:46)
[2023-02-13] MEDS: Sertraline 50 MG Tab PO SCH (09:46)
[2023-02-13] MEDS: Sodium Chloride 0.9% 1,000 ML IV SCH ×2 (10:12→21:51)
[2023-02-13] MEDS: Carboxymethylcellulose Sodium 1% Ophth Gel 15 ML Bottle EYEBOTH SCH ×2 (10:13→20:31)
[2023-02-13] MEDS ORDERED: OLANZapine 5 MG Tab PO ONE (11:22)
[2023-02-13] MEDS: Colchicine 0.6 MG Tab PO SCH (11:30)
[2023-02-13] MEDS: Polyethylene Glycol 3350 Powder 17 GM Packet PO SCH (11:30)
[2023-02-13 18:34] LABS: APPEARANCE,URINE CLOUDY (Clear); BILIRUBIN,URINE NEGATIVE (Negative); COLOR,URINE YELLOW (Yellow); GLUCOSE,URINE NEGATIVE (Negative); KETONES,URINE NEGATIVE (Negative); LEUKOCYTE ESTERASE,URINE 1+ (Negative); NITRITE,URINE POSITIVE (Negative); OCCULT BLOOD,URINE 3+ (Negative); PH,URINE 8.5 (5.0-8.0); PROTEIN,URINE 3+ (Negative); UROBILINOGEN,URINE 0.2 (0.2-1.0)
[2023-02-13 18:42] LABS: AMORPHOUS SEDIMENT,URINE MANY /hpf (NOT SEEN); BACTERIA,URINE MANY /hpf (FEW); MUCUS,URINE NOT SEEN /hpf (FEW); RBC,URINE >100 /hpf (0-5); SQUAMOUS EPITHELIAL CELLS,UR NOT SEEN /hpf (0-5); WBC,URINE 30-40 /hpf (0-5)
[2023-02-13] MEDS: Nortriptyline 25 MG Cap PO SCH (20:31)
[2023-02-13] MEDS: ClonazePAM 1 MG Tab PO SCH (20:31)
[2023-02-13] MEDS ORDERED: OLANZapine 5 MG Tab PO SCH (21:00)
[2023-02-14] MEDS: Acetaminophen/oxyCODONE 325-5 MG Tab PO PRN ×2 (04:49→20:18)
[2023-02-14 05:33] LABS: HEMATOCRIT 26.5 % (34.1-44.9); HEMOGLOBIN 8.6 gm/dl (11.2-15.7); MEAN CORPUSCULAR HEMOGLOBIN 28.4 pg (25.6-32.2); MEAN CORPUSCULAR HGB CONC 32.5 g/dl (32.2-35.5); MEAN CORPUSCULAR VOLUME 87.5 fl (79.4-94.8); MEAN PLATELET VOLUME 10.5 fl (9.4-12.3); PLATELET COUNT,PLT 181 K/mm3 (182-369); RED BLOOD CELL COUNT 3.03 M/mm3 (3.98-5.22); WHITE BLOOD CELL COUNT,WBC 16.88 K/mm3 (3.98-10.04)
[2023-02-14 05:42] LABS: ANION GAP 15.2 (5-15); BUN/CREATININE RATIO 27.1 (14-18); CALCIUM 9.2 mg/dL (8.5-10.1); CREATININE 0.7 mg/dL (0.55-1.02); EST CRCL DRUG DOSING (CG) 46.81 mL/min; POTASSIUM,K 3.2 mEq/L (3.5-5.1)
[2023-02-14 06:19] LABS: ANISOCYTOSIS 1+ SLIGHT; BAND PERCENT MAN 9 % (0-10); BASOPHILS PERCENT MAN 1 (0.1-1.2); EOSINOPHILS PERCENT MAN 0 % (0.7-5.8); HYPOCHROMASIA 1+ SLIGHT; LYMPHOCYTES % ATYPICAL MANUAL 0 %; LYMPHOCYTES PERCENT MAN 19 % (20-40); METAMYELOCYTE PERCENT MAN 12; MONOCYTES PERCENT MAN 18 % (2-10); MYELOCYTE PERCENT MAN 3; PLATELET COUNT ESTIMATE ADEQUATE
[2023-02-14] MEDS: Heparin Sodium 5,000 Units/ML Vial SUBCUT SCH ×3 (06:20→23:09)
[2023-02-14] MEDS: NIFEdipine 30 MG Tab.ER PO SCH (08:16)
[2023-02-14] MEDS: Multivitamin Tab PO SCH (08:16)
[2023-02-14] MEDS: Colchicine 0.6 MG Tab PO SCH (08:16)
[2023-02-14] MEDS: Hydroxychloroquine 200 MG Tab PO SCH (08:16)
[2023-02-14] MEDS: Pantoprazole 40 MG Tab.CR PO SCH ×2 (08:16→20:20)
[2023-02-14] MEDS: Docusate Sodium 100 MG Cap PO SCH ×2 (08:17→20:42)
[2023-02-14] MEDS: Sertraline 50 MG Tab PO SCH (08:17)
[2023-02-14] MEDS: Ferrous Sulfate 324 MG Tab.EC PO SCH (08:17)
[2023-02-14] MEDS: Polyethylene Glycol 3350 Powder 17 GM Packet PO SCH (08:17)
[2023-02-14] MEDS: Lidocaine 4% 1 each Patch TOP SCH (08:17)
[2023-02-14] MEDS: Carboxymethylcellulose Sodium 1% Ophth Gel 15 ML Bottle EYEBOTH SCH ×2 (08:17→20:34)
[2023-02-14] MEDS: Baclofen 10 MG Tab PO SCH (08:17)
[2023-02-14] MEDS ORDERED: QUEtiapine 25 MG Tab PO SCH (09:00)
[2023-02-14] MEDS: Acetaminophen 325 MG Tab PO PRN ×2 (10:05→15:53)
[2023-02-14] MEDS: Sodium Chloride 0.9% 1,000 ML IV SCH (10:54)
[2023-02-14] MEDS: Nortriptyline 25 MG Cap PO SCH (20:20)
[2023-02-14] MEDS: ClonazePAM 1 MG Tab PO SCH (20:20)
[2023-02-14] MEDS ORDERED: OLANZapine 5 MG Tab PO SCH (21:00)
[2023-02-15] MEDS: Sodium Chloride 0.9% 1,000 ML IV SCH ×2 (00:12→14:51)
[2023-02-15 06:10] LABS: ANION GAP 16.1 (5-15); BUN/CREATININE RATIO 27.1 (14-18); CALCIUM 9.2 mg/dL (8.5-10.1); CREATININE 0.7 mg/dL (0.55-1.02); EST CRCL DRUG DOSING (CG) 46.81 mL/min; POTASSIUM,K 3.1 mEq/L (3.5-5.1)
[2023-02-15 09:28] LABS: HEMATOCRIT 27.2 % (34.1-44.9); HEMOGLOBIN 8.7 gm/dl (11.2-15.7); MEAN CORPUSCULAR VOLUME 87.5 fl (79.4-94.8); MEAN PLATELET VOLUME 11.3 fl (9.4-12.3); PLATELET COUNT,PLT 149 K/mm3 (182-369); RED BLOOD CELL COUNT 3.11 M/mm3 (3.98-5.22)
[2023-02-15 10:03] LABS: BAND PERCENT MAN 4 % (0-10); BASOPHILS PERCENT MAN 3 (0.1-1.2); EOSINOPHILS PERCENT MAN 0 % (0.7-5.8); LYMPHOCYTES % ATYPICAL MANUAL 1 %; LYMPHOCYTES PERCENT MAN 12 % (20-40); MONOCYTES PERCENT MAN 31 % (2-10); MYELOCYTE PERCENT MAN 3
[2023-02-15 10:04] LABS: ANISOCYTOSIS 2+ MODERATE
[2023-02-15 10:05] LABS: OVALOCYTES 1+ SLIGHT; POLYCHROMASIA 1+ SLIGHT; ROULEAUX 1+ SLIGHT
[2023-02-15 10:06] LABS: PLATELET COUNT ESTIMATE DECREASED
[2023-02-15] MEDS: Multivitamin Tab PO SCH (10:22)
[2023-02-15] MEDS: Pantoprazole 40 MG Tab.CR PO SCH ×2 (10:22→20:49)
[2023-02-15] MEDS: Sertraline 50 MG Tab PO SCH (10:22)
[2023-02-15] MEDS: Acetaminophen 325 MG Tab PO PRN ×2 (10:22→22:22)
[2023-02-15] MEDS: NIFEdipine 30 MG Tab.ER PO SCH (10:22)
[2023-02-15] MEDS: Docusate Sodium 100 MG Cap PO SCH ×2 (10:23→20:48)
[2023-02-15] MEDS: Polyethylene Glycol 3350 Powder 17 GM Packet PO SCH (10:23)
[2023-02-15] MEDS: Ferrous Sulfate 324 MG Tab.EC PO SCH (10:23)
[2023-02-15] MEDS: Baclofen 10 MG Tab PO SCH (10:23)
[2023-02-15] MEDS: Hydroxychloroquine 200 MG Tab PO SCH (10:23)
[2023-02-15] MEDS: Colchicine 0.6 MG Tab PO SCH (10:23)
[2023-02-15] MEDS: Heparin Sodium 5,000 Units/ML Vial SUBCUT SCH ×3 (10:24→22:18)
[2023-02-15] MEDS: Carboxymethylcellulose Sodium 1% Ophth Gel 15 ML Bottle EYEBOTH SCH ×2 (10:45→22:18)
[2023-02-15 14:09] LABS: LACTIC ACID 0.7 mmol/L (0.4-2.0)
[2023-02-15] MEDS: cefTRIAXone 1 GM in Sodium Chloride 0.9% 100 ML IV SCH (14:55)
[2023-02-15] MEDS: Potassium Chloride 10 MEQ in Premix Bag 1 BAG IV SCH ×6 (15:37→21:27)
[2023-02-15] MEDS: Furosemide 20 MG/2 ML VIAL IVPUSH SCH ×2 (15:51→20:49)
[2023-02-15] MEDS ORDERED: Magnesium Sulfate/Water 2 GM in Premix Bag 1 BAG IV ONE (20:30)
[2023-02-15] MEDS: Nortriptyline 25 MG Cap PO SCH (20:49)
[2023-02-15] MEDS: ClonazePAM 1 MG Tab PO SCH (20:50)
[2023-02-16] MEDS: Sodium Chloride 0.9% 1,000 ML IV SCH ×2 (03:30→16:22)
[2023-02-16] MEDS: Heparin Sodium 5,000 Units/ML Vial SUBCUT SCH ×3 (06:39→22:14)
[2023-02-16] MEDS: Furosemide 20 MG/2 ML VIAL IVPUSH SCH ×2 (09:08→21:26)
[2023-02-16] MEDS: NIFEdipine 30 MG Tab.ER PO SCH (09:09)
[2023-02-16] MEDS: Multivitamin Tab PO SCH (09:10)
[2023-02-16] MEDS: Colchicine 0.6 MG Tab PO SCH (09:10)
[2023-02-16] MEDS: Ferrous Sulfate 324 MG Tab.EC PO SCH (09:10)
[2023-02-16] MEDS: Hydroxychloroquine 200 MG Tab PO SCH (09:10)
[2023-02-16] MEDS: Sertraline 50 MG Tab PO SCH (09:11)
[2023-02-16] MEDS: Pantoprazole 40 MG Tab.CR PO SCH ×2 (09:11→21:36)
[2023-02-16] MEDS: Baclofen 10 MG Tab PO SCH (09:11)
[2023-02-16] MEDS: Docusate Sodium 100 MG Cap PO SCH (09:16)
[2023-02-16] MEDS: Carboxymethylcellulose Sodium 1% Ophth Gel 15 ML Bottle EYEBOTH SCH ×2 (09:16→21:41)
[2023-02-16] MEDS: Polyethylene Glycol 3350 Powder 17 GM Packet PO SCH (09:16)
[2023-02-16] MEDS: Albuterol/Ipratropium 3.0-0.5 MG/3 ML Neb Soln NEB PRN ×2 (09:45→16:49)
[2023-02-16 11:14] LABS: ANION GAP 12.5 (5-15); BUN/CREATININE RATIO 22.5 (14-18); CALCIUM 8.9 mg/dL (8.5-10.1); CREATININE 0.8 mg/dL (0.55-1.02); EST CRCL DRUG DOSING (CG) 40.96 mL/min; MAGNESIUM 1.6 mg/dL (1.8-2.4)
[2023-02-16 11:30] LABS: POTASSIUM,K 2.5 mEq/L (3.5-5.1)
[2023-02-16 12:42] LABS: HEMATOCRIT 27.1 % (34.1-44.9); MEAN CORPUSCULAR HEMOGLOBIN 28.7 pg (25.6-32.2); MEAN CORPUSCULAR HGB CONC 33.2 g/dl (32.2-35.5); MEAN CORPUSCULAR VOLUME 86.3 fl (79.4-94.8); MEAN PLATELET VOLUME 11.9 fl (9.4-12.3); PLATELET COUNT,PLT 185 K/mm3 (182-369); RED BLOOD CELL COUNT 3.14 M/mm3 (3.98-5.22); WHITE BLOOD CELL COUNT,WBC 22.95 K/mm3 (3.98-10.04)
[2023-02-16] MEDS: cefTRIAXone 1 GM in Sodium Chloride 0.9% 100 ML IV SCH (13:38)
[2023-02-16 13:55] LABS: BAND PERCENT MAN 9 % (0-10); BASOPHILS PERCENT MAN 0 (0.1-1.2); BLASTS PERCENT MAN 5; EOSINOPHILS PERCENT MAN 1 % (0.7-5.8); LYMPHOCYTES % ATYPICAL MANUAL 7 %; LYMPHOCYTES PERCENT MAN 5 % (20-40); METAMYELOCYTE PERCENT MAN 2; MONOCYTES PERCENT MAN 25 % (2-10)
[2023-02-16 13:59] LABS: ANISOCYTOSIS 1+ SLIGHT
[2023-02-16 14:03] LABS: PLATELET COUNT ESTIMATE ADEQUATE
[2023-02-16] MEDS: Potassium Chloride 10 MEQ in Premix Bag 1 BAG IV SCH ×6 (14:36→23:17)
[2023-02-16] MEDS ORDERED: Magnesium Sulfate/Water 4 GM in Premix Bag 1 BAG IV ONE (15:00)
[2023-02-16] MEDS ORDERED: Levofloxacin/Dextrose 5%-Water 750 MG in Premix Bag 1 BAG IV SCH ×2 (17:00→21:00)
[2023-02-16] MEDS: ClonazePAM 1 MG Tab PO SCH (21:21)
[2023-02-16] MEDS: Ibuprofen 600 MG Tab PO PRN (21:26)
[2023-02-16] MEDS: Nortriptyline 25 MG Cap PO SCH (21:26)
[2023-02-16] MEDS ORDERED: Potassium Chloride 10 MEQ in Premix Bag 1 BAG IV SCH (23:00)
[2023-02-17] MEDS ORDERED: Magnesium Sulfate/Water 4 GM in Premix Bag 1 BAG IV ONE ×2
[2023-02-17] MEDS: Albuterol/Ipratropium 3.0-0.5 MG/3 ML Neb Soln NEB PRN (02:35)
[2023-02-17] MEDS: Heparin Sodium 5,000 Units/ML Vial SUBCUT SCH ×3 (06:12→22:47)
[2023-02-17 08:50] LABS: HEMATOCRIT 25.1 % (34.1-44.9); HEMOGLOBIN 8.2 gm/dl (11.2-15.7); MEAN CORPUSCULAR HEMOGLOBIN 28.6 pg (25.6-32.2); MEAN CORPUSCULAR HGB CONC 32.7 g/dl (32.2-35.5); MEAN CORPUSCULAR VOLUME 87.5 fl (79.4-94.8); PLATELET COUNT,PLT 151 K/mm3 (182-369); RED BLOOD CELL COUNT 2.87 M/mm3 (3.98-5.22); WHITE BLOOD CELL COUNT,WBC 19.65 K/mm3 (3.98-10.04)
[2023-02-17 08:51] LABS: A/G RATIO 0.3 (1-2); ANION GAP 7.4 (5-15); BILIRUBIN TOTAL 0.3 mg/dL (0.2-1.0); BUN/CREATININE RATIO 31.7 (14-18); CALCIUM 8.7 mg/dL (8.5-10.1); CREATININE 0.6 mg/dL (0.55-1.02); EST CRCL DRUG DOSING (CG) 54.61 mL/min; MAGNESIUM 2.2 mg/dL (1.8-2.4); PROTEIN TOTAL,TP 4.6 g/dl (6.4-8.2)
[2023-02-17 08:54] LABS: POTASSIUM,K 2.4 mEq/L (3.5-5.1)
[2023-02-17] MEDS: Furosemide 20 MG/2 ML VIAL IVPUSH SCH ×3 (09:00→20:00)
[2023-02-17] MEDS ORDERED: Potassium Chloride 20 MEQ Tab.ER PO ONE (09:00)
[2023-02-17 09:15] LABS: C-REACTIVE PROTEIN 19.4 mg/dL (<1.0)
[2023-02-17] MEDS: Potassium Chloride 10 MEQ in Premix Bag 1 BAG IV SCH ×10 (09:17→22:47)
[2023-02-17] MEDS ORDERED: Potassium Bicarbonate/Cit Ac 20 MEQ Effervescent Tab PO ONE (09:36)
[2023-02-17] MEDS: Sertraline 50 MG Tab PO SCH (09:45)
[2023-02-17] MEDS: Colchicine 0.6 MG Tab PO SCH (09:45)
[2023-02-17] MEDS: Baclofen 10 MG Tab PO SCH (09:45)
[2023-02-17] MEDS: Hydroxychloroquine 200 MG Tab PO SCH (09:45)
[2023-02-17] MEDS: NIFEdipine 30 MG Tab.ER PO SCH (09:45)
[2023-02-17] MEDS: Multivitamin Tab PO SCH (09:45)
[2023-02-17] MEDS: Ferrous Sulfate 324 MG Tab.EC PO SCH (09:45)
[2023-02-17] MEDS: Carboxymethylcellulose Sodium 1% Ophth Gel 15 ML Bottle EYEBOTH SCH ×2 (09:45→21:42)
[2023-02-17] MEDS: Pantoprazole 40 MG Tab.CR PO SCH ×2 (09:45→20:00)
[2023-02-17 10:00] LABS: BAND PERCENT MAN 5 % (0-10); BASOPHILS PERCENT MAN 1 (0.1-1.2); BLASTS PERCENT MAN 3; EOSINOPHILS PERCENT MAN 0 % (0.7-5.8); LYMPHOCYTES % ATYPICAL MANUAL 6 %; LYMPHOCYTES PERCENT MAN 8 % (20-40); METAMYELOCYTE PERCENT MAN 5; MONOCYTES PERCENT MAN 17 % (2-10); MYELOCYTE PERCENT MAN 1; PROMYELOCYTE PERCENT MAN 3
[2023-02-17 10:05] LABS: ANISOCYTOSIS 2+ MODERATE
[2023-02-17 10:06] LABS: HYPOCHROMASIA 1+ SLIGHT; PLATELET COUNT ESTIMATE ADEQUATE
[2023-02-17] MEDS: Ibuprofen 600 MG Tab PO PRN ×2 (11:02→20:01)
[2023-02-17] MEDS: cefTRIAXone 1 GM in Sodium Chloride 0.9% 100 ML IV SCH (13:01)
[2023-02-17 13:42] LABS: HYPERSEG Seen (Absent); NEUTROPHILS% 39 %; TOXIC GRAN Seen (Absent)
[2023-02-17] MEDS: Nortriptyline 25 MG Cap PO SCH (20:00)
[2023-02-17] MEDS: ClonazePAM 1 MG Tab PO SCH (20:01)
[2023-02-17] MEDS: Levofloxacin/Dextrose 5%-Water 750 MG in Premix Bag 1 BAG IV SCH (23:53)
[2023-02-18 06:25] LABS: HEMATOCRIT 26.3 % (34.1-44.9); HEMOGLOBIN 8.5 gm/dl (11.2-15.7); MEAN CORPUSCULAR HEMOGLOBIN 28.3 pg (25.6-32.2); MEAN CORPUSCULAR HGB CONC 32.3 g/dl (32.2-35.5); MEAN CORPUSCULAR VOLUME 87.7 fl (79.4-94.8); MEAN PLATELET VOLUME 11.8 fl (9.4-12.3); PLATELET COUNT,PLT 141 K/mm3 (182-369)
[2023-02-18] MEDS: Heparin Sodium 5,000 Units/ML Vial SUBCUT SCH ×2 (06:26→14:29)
[2023-02-18 06:37] LABS: A/G RATIO 0.3 (1-2); ANION GAP 12.2 (5-15); BILIRUBIN TOTAL 0.5 mg/dL (0.2-1.0); CALCIUM 8.8 mg/dL (8.5-10.1); CREATININE 0.6 mg/dL (0.55-1.02); EST CRCL DRUG DOSING (CG) 54.61 mL/min; MAGNESIUM 1.6 mg/dL (1.8-2.4); POTASSIUM,K 3.2 mEq/L (3.5-5.1); PROTEIN TOTAL,TP 4.5 g/dl (6.4-8.2)
[2023-02-18] MEDS: Acetaminophen 325 MG Tab PO PRN (08:11)
[2023-02-18] MEDS: Colchicine 0.6 MG Tab PO SCH (08:13)
[2023-02-18] MEDS: Sertraline 50 MG Tab PO SCH (08:13)
[2023-02-18] MEDS: NIFEdipine 30 MG Tab.ER PO SCH (08:14)
[2023-02-18] MEDS: Hydroxychloroquine 200 MG Tab PO SCH (08:16)
[2023-02-18] MEDS: Multivitamin Tab PO SCH (08:17)
[2023-02-18] MEDS: Pantoprazole 40 MG Tab.CR PO SCH ×2 (08:17→20:24)
[2023-02-18] MEDS: Ferrous Sulfate 324 MG Tab.EC PO SCH (08:18)
[2023-02-18] MEDS: Potassium Bicarbonate/Cit Ac 20 MEQ Effervescent Tab PO SCH (08:18)
[2023-02-18] MEDS: Carboxymethylcellulose Sodium 1% Ophth Gel 15 ML Bottle EYEBOTH SCH ×2 (08:19→20:23)
[2023-02-18] MEDS: Furosemide 20 MG/2 ML VIAL IVPUSH SCH ×2 (08:19→20:23)
[2023-02-18] MEDS: Acetaminophen/oxyCODONE 325-5 MG Tab PO PRN ×3 (09:08→20:44)
[2023-02-18 09:10] LABS: BAND PERCENT MAN 16 % (0-10); BASOPHILS PERCENT MAN 0 (0.1-1.2); BLASTS PERCENT MAN 5; EOSINOPHILS PERCENT MAN 0 % (0.7-5.8); LYMPHOCYTES % ATYPICAL MANUAL 0 %; LYMPHOCYTES PERCENT MAN 10 % (20-40); METAMYELOCYTE PERCENT MAN 4; MONOCYTES PERCENT MAN 21 % (2-10); MYELOCYTE PERCENT MAN 8
[2023-02-18 09:11] LABS: ANISOCYTOSIS 1+ SLIGHT; POLYCHROMASIA 1+ SLIGHT
[2023-02-18 09:12] LABS: PLATELET COUNT ESTIMATE DECREASED
[2023-02-18 09:13] LABS: TOXIC GRANULATION 1+ SLIGHT
[2023-02-18] MEDS: cefTRIAXone 1 GM in Sodium Chloride 0.9% 100 ML IV SCH (14:29)
[2023-02-18] MEDS: Loperamide 2 MG Cap PO PRN (16:54)
[2023-02-18] MEDS: ClonazePAM 1 MG Tab PO SCH (20:23)
[2023-02-18] MEDS: Nortriptyline 25 MG Cap PO SCH (20:24)
[2023-02-19] MEDS: Heparin Sodium 5,000 Units/ML Vial SUBCUT SCH ×3 (02:07→18:05)
[2023-02-19] MEDS: Levofloxacin/Dextrose 5%-Water 750 MG in Premix Bag 1 BAG IV SCH (02:07)
[2023-02-19] MEDS: Acetaminophen/oxyCODONE 325-5 MG Tab PO PRN ×4 (02:10→15:24)
[2023-02-19] MEDS: Acetaminophen 325 MG Tab PO PRN ×3 (04:03→21:32)
[2023-02-19 05:57] LABS: A/G RATIO 0.3 (1-2); ALBUMIN 1.1 g/dl (3.4-5.0); ANION GAP 11.9 (5-15); BILIRUBIN TOTAL 0.4 mg/dL (0.2-1.0); BUN/CREATININE RATIO 28.6 (14-18); CALCIUM 9.3 mg/dL (8.5-10.1); CREATININE 0.7 mg/dL (0.55-1.02); EST CRCL DRUG DOSING (CG) 46.81 mL/min; MAGNESIUM 1.4 mg/dL (1.8-2.4); POTASSIUM,K 2.9 mEq/L (3.5-5.1); PROTEIN TOTAL,TP 4.6 g/dl (6.4-8.2)
[2023-02-19 06:23] LABS: HEMATOCRIT 25.8 % (34.1-44.9); HEMOGLOBIN 8.2 gm/dl (11.2-15.7); MEAN CORPUSCULAR HGB CONC 31.8 g/dl (32.2-35.5); MEAN CORPUSCULAR VOLUME 88.1 fl (79.4-94.8); MEAN PLATELET VOLUME 11.9 fl (9.4-12.3); PLATELET COUNT,PLT 140 K/mm3 (182-369); RED BLOOD CELL COUNT 2.93 M/mm3 (3.98-5.22); WHITE BLOOD CELL COUNT,WBC 18.45 K/mm3 (3.98-10.04)
[2023-02-19 08:03] LABS: BAND PERCENT MAN 37 % (0-10); BASOPHILS PERCENT MAN 2 (0.1-1.2); EOSINOPHILS PERCENT MAN 1 % (0.7-5.8); LYMPHOCYTES % ATYPICAL MANUAL 0 %; LYMPHOCYTES PERCENT MAN 21 % (20-40); MONOCYTES PERCENT MAN 16 % (2-10); MYELOCYTE PERCENT MAN 1; PROMYELOCYTE PERCENT MAN 1
[2023-02-19 08:04] LABS: ANISOCYTOSIS 1+ SLIGHT; HYPOCHROMASIA 1+ SLIGHT; TOXIC GRANULATION 1+ SLIGHT
[2023-02-19 08:05] LABS: PLATELET COUNT ESTIMATE DECREASED
[2023-02-19] MEDS: Pantoprazole 40 MG Tab.CR PO SCH ×2 (08:41→21:32)
[2023-02-19] MEDS: Potassium Bicarbonate/Cit Ac 20 MEQ Effervescent Tab PO SCH (08:41)
[2023-02-19] MEDS: Sertraline 50 MG Tab PO SCH (08:42)
[2023-02-19] MEDS: Furosemide 20 MG/2 ML VIAL IVPUSH SCH ×2 (08:42→21:31)
[2023-02-19] MEDS: Colchicine 0.6 MG Tab PO SCH (08:43)
[2023-02-19] MEDS: Multivitamin Tab PO SCH (08:43)
[2023-02-19] MEDS: NIFEdipine 30 MG Tab.ER PO SCH (08:43)
[2023-02-19] MEDS: Ferrous Sulfate 324 MG Tab.EC PO SCH (08:44)
[2023-02-19] MEDS: Carboxymethylcellulose Sodium 1% Ophth Gel 15 ML Bottle EYEBOTH SCH ×2 (08:45→21:34)
[2023-02-19] MEDS: Hydroxychloroquine 200 MG Tab PO SCH (08:45)
[2023-02-19] MEDS ORDERED: Magnesium Sulfate/Water 4 GM in Premix Bag 1 BAG IV ONE (10:08)
[2023-02-19] MEDS ORDERED: Potassium Chloride 20 MEQ Tab.ER PO ONE (10:08)
[2023-02-19] MEDS: Spironolactone 25 MG Tab PO SCH (10:40)
[2023-02-19] MEDS: Magnesium Oxide 400 MG Tab PO SCH ×2 (10:40→21:32)
[2023-02-19] MEDS: Potassium Chloride 10 MEQ in Premix Bag 1 BAG IV SCH ×6 (10:48→18:04)
[2023-02-19] MEDS: cefTRIAXone 1 GM in Sodium Chloride 0.9% 100 ML IV SCH (15:28)
[2023-02-19] MEDS: Ibuprofen 600 MG Tab PO PRN (18:06)
[2023-02-19] MEDS: Nortriptyline 25 MG Cap PO SCH (21:32)
[2023-02-19] MEDS: ClonazePAM 1 MG Tab PO SCH (21:34)
[2023-02-20] MEDS: Levofloxacin/Dextrose 5%-Water 750 MG in Premix Bag 1 BAG IV SCH (01:13)
[2023-02-20] MEDS: Heparin Sodium 5,000 Units/ML Vial SUBCUT SCH ×3 (01:14→18:59)
[2023-02-20] MEDS: Acetaminophen/oxyCODONE 325-5 MG Tab PO PRN ×2 (01:19→09:50)
[2023-02-20 05:31] LABS: HEMATOCRIT 24.6 % (34.1-44.9); HEMOGLOBIN 7.9 gm/dl (11.2-15.7); MEAN CORPUSCULAR HEMOGLOBIN 28.6 pg (25.6-32.2); MEAN CORPUSCULAR HGB CONC 32.1 g/dl (32.2-35.5); MEAN CORPUSCULAR VOLUME 89.1 fl (79.4-94.8); MEAN PLATELET VOLUME 11.9 fl (9.4-12.3); PLATELET COUNT,PLT 114 K/mm3 (182-369); RED BLOOD CELL COUNT 2.76 M/mm3 (3.98-5.22)
[2023-02-20 05:59] LABS: A/G RATIO 0.3 (1-2); ANION GAP 9.3 (5-15); BILIRUBIN TOTAL 0.4 mg/dL (0.2-1.0); BUN/CREATININE RATIO 28.9 (14-18); CALCIUM 9.8 mg/dL (8.5-10.1); CREATININE 0.9 mg/dL (0.55-1.02); EST CRCL DRUG DOSING (CG) 36.41 mL/min; MAGNESIUM 2.3 mg/dL (1.8-2.4); POTASSIUM,K 4.3 mEq/L (3.5-5.1); PROTEIN TOTAL,TP 4.5 g/dl (6.4-8.2)
[2023-02-20] MEDS: Acetaminophen 325 MG Tab PO PRN ×2 (06:03→21:52)
[2023-02-20 06:22] LABS: ANISOCYTOSIS 1+ SLIGHT; BAND PERCENT MAN 5 % (0-10); BASOPHILS PERCENT MAN 1 (0.1-1.2); EOSINOPHILS PERCENT MAN 2 % (0.7-5.8); HYPOCHROMASIA 1+ SLIGHT; LYMPHOCYTES % ATYPICAL MANUAL 2 %; LYMPHOCYTES PERCENT MAN 21 % (20-40); METAMYELOCYTE PERCENT MAN 7; MONOCYTES PERCENT MAN 17 % (2-10); MYELOCYTE PERCENT MAN 5; OVALOCYTES 1+ SLIGHT
[2023-02-20 06:23] LABS: PLATELET COUNT ESTIMATE DECREASED
[2023-02-20] MEDS: Hydroxychloroquine 200 MG Tab PO SCH (09:44)
[2023-02-20] MEDS: Colchicine 0.6 MG Tab PO SCH (09:45)
[2023-02-20] MEDS: NIFEdipine 30 MG Tab.ER PO SCH (09:45)
[2023-02-20] MEDS: Magnesium Oxide 400 MG Tab PO SCH ×2 (09:46→21:52)
[2023-02-20] MEDS: Multivitamin Tab PO SCH (09:47)
[2023-02-20] MEDS: Potassium Bicarbonate/Cit Ac 20 MEQ Effervescent Tab PO SCH (09:47)
[2023-02-20] MEDS: Ferrous Sulfate 324 MG Tab.EC PO SCH (09:48)
[2023-02-20] MEDS: Pantoprazole 40 MG Tab.CR PO SCH ×2 (09:49→21:51)
[2023-02-20] MEDS: Spironolactone 25 MG Tab PO SCH (09:51)
[2023-02-20] MEDS: Furosemide 20 MG/2 ML VIAL IVPUSH SCH ×2 (09:52→21:54)
[2023-02-20] MEDS: Carboxymethylcellulose Sodium 1% Ophth Gel 15 ML Bottle EYEBOTH SCH ×2 (09:53→23:00)
[2023-02-20] MEDS: Sertraline 50 MG Tab PO SCH (09:53)
[2023-02-20] MEDS: oxyCODONE 5 MG Tab PO PRN ×2 (13:18→19:46)
[2023-02-20] MEDS: cefTRIAXone 1 GM in Sodium Chloride 0.9% 100 ML IV SCH (13:18)
[2023-02-20] MEDS: Ibuprofen 600 MG Tab PO PRN (16:29)
[2023-02-20] MEDS: ClonazePAM 1 MG Tab PO SCH (21:51)
[2023-02-20] MEDS: Nortriptyline 25 MG Cap PO SCH (21:52)
[2023-02-21] MEDS: Ibuprofen 600 MG Tab PO PRN ×3 (00:01→19:13)
[2023-02-21] MEDS: Levofloxacin/Dextrose 5%-Water 750 MG in Premix Bag 1 BAG IV SCH (00:10)
[2023-02-21] MEDS: oxyCODONE 5 MG Tab PO PRN ×2 (02:30→07:49)
[2023-02-21] MEDS: Heparin Sodium 5,000 Units/ML Vial SUBCUT SCH ×3 (02:35→19:11)
[2023-02-21] MEDS: Acetaminophen 325 MG Tab PO PRN (03:35)
[2023-02-21 05:26] LABS: HEMATOCRIT 24.8 % (34.1-44.9); HEMOGLOBIN 7.9 gm/dl (11.2-15.7); MEAN CORPUSCULAR HGB CONC 31.9 g/dl (32.2-35.5); MEAN CORPUSCULAR VOLUME 87.9 fl (79.4-94.8); MEAN PLATELET VOLUME 11.6 fl (9.4-12.3); PLATELET COUNT,PLT 131 K/mm3 (182-369); RED BLOOD CELL COUNT 2.82 M/mm3 (3.98-5.22); WHITE BLOOD CELL COUNT,WBC 18.74 K/mm3 (3.98-10.04)
[2023-02-21 05:43] LABS: A/G RATIO 0.3 (1-2); ALBUMIN 1.1 g/dl (3.4-5.0); ANION GAP 9.2 (5-15); BILIRUBIN TOTAL 0.3 mg/dL (0.2-1.0); CALCIUM 10.4 mg/dL (8.5-10.1); EST CRCL DRUG DOSING (CG) 32.77 mL/min; MAGNESIUM 1.8 mg/dL (1.8-2.4); POTASSIUM,K 4.2 mEq/L (3.5-5.1)
[2023-02-21 06:26] LABS: BAND PERCENT MAN 5 % (0-10); BASOPHILS PERCENT MAN 1 (0.1-1.2); BLASTS PERCENT MAN 2; EOSINOPHILS PERCENT MAN 1 % (0.7-5.8); LYMPHOCYTES % ATYPICAL MANUAL 2 %; LYMPHOCYTES PERCENT MAN 15 % (20-40); METAMYELOCYTE PERCENT MAN 3; MONOCYTES PERCENT MAN 24 % (2-10); MYELOCYTE PERCENT MAN 9; PROMYELOCYTE PERCENT MAN 2
[2023-02-21 06:28] LABS: ANISOCYTOSIS 1+ SLIGHT; HYPOCHROMASIA 1+ SLIGHT; PLATELET COUNT ESTIMATE DECREASED
[2023-02-21] MEDS ORDERED: Zoledronic Acid in Water 5 MG in Premix Bag 1 BAG IV ONE ×2 (08:30)
[2023-02-21] MEDS ORDERED: oxyCODONE 5 MG Tab PO PRN (08:35)
[2023-02-21] MEDS: Albuterol/Ipratropium 3.0-0.5 MG/3 ML Neb Soln NEB PRN (08:44)
[2023-02-21] MEDS: Sodium Chloride 0.9% 1,000 ML IV SCH ×2 (08:55→21:59)
[2023-02-21] MEDS: Furosemide 20 MG/2 ML VIAL IVPUSH SCH (08:56)
[2023-02-21] MEDS: Colchicine 0.6 MG Tab PO SCH (09:05)
[2023-02-21] MEDS: Potassium Bicarbonate/Cit Ac 20 MEQ Effervescent Tab PO SCH (09:05)
[2023-02-21] MEDS: Hydroxychloroquine 200 MG Tab PO SCH (09:06)
[2023-02-21] MEDS: Ferrous Sulfate 324 MG Tab.EC PO SCH (09:06)
[2023-02-21] MEDS: Magnesium Oxide 400 MG Tab PO SCH ×2 (09:06→20:35)
[2023-02-21] MEDS: Acetaminophen 325 MG Tab PO SCH ×2 (09:07→20:35)
[2023-02-21] MEDS: Multivitamin Tab PO SCH (09:07)
[2023-02-21] MEDS: Pantoprazole 40 MG Tab.CR PO SCH (09:07)
[2023-02-21] MEDS: Sertraline 50 MG Tab PO SCH (09:08)
[2023-02-21] MEDS: Carboxymethylcellulose Sodium 1% Ophth Gel 15 ML Bottle EYEBOTH SCH ×2 (09:29→20:34)
[2023-02-21] MEDS: predniSONE 20 MG Tab PO SCH (11:30)
[2023-02-21] MEDS: cefTRIAXone 1 GM in Sodium Chloride 0.9% 100 ML IV SCH (14:27)
[2023-02-21] MEDS: Furosemide 40 MG/4 ML VIAL IVPUSH SCH (14:27)
[2023-02-21] MEDS: ClonazePAM 1 MG Tab PO SCH (20:34)
[2023-02-21] MEDS: Nortriptyline 25 MG Cap PO SCH (20:35)
[2023-02-22] MEDS: Heparin Sodium 5,000 Units/ML Vial SUBCUT SCH ×3 (02:03→18:35)
[2023-02-22] MEDS: Loperamide 2 MG Cap PO PRN ×2 (02:11→06:41)
[2023-02-22] MEDS: Furosemide 40 MG/4 ML VIAL IVPUSH SCH (06:11)
[2023-02-22] MEDS: predniSONE 20 MG Tab PO SCH (06:11)
[2023-02-22 06:15] LABS: A/G RATIO 0.3 (1-2); ANION GAP 8.1 (5-15); BILIRUBIN TOTAL 0.2 mg/dL (0.2-1.0); CALCIUM 9.4 mg/dL (8.5-10.1); EST CRCL DRUG DOSING (CG) 32.77 mL/min; POTASSIUM,K 4.1 mEq/L (3.5-5.1); PROTEIN TOTAL,TP 4.9 g/dl (6.4-8.2)
[2023-02-22] MEDS: Albuterol/Ipratropium 3.0-0.5 MG/3 ML Neb Soln NEB PRN (06:17)
[2023-02-22] MEDS: Ibuprofen 600 MG Tab PO PRN ×2 (07:55→18:35)
[2023-02-22] MEDS: Acetaminophen 325 MG Tab PO SCH ×2 (08:03→20:32)
[2023-02-22] MEDS: Multivitamin Tab PO SCH (08:04)
[2023-02-22] MEDS: Ferrous Sulfate 324 MG Tab.EC PO SCH (08:04)
[2023-02-22] MEDS: Sertraline 50 MG Tab PO SCH (08:04)
[2023-02-22] MEDS: Potassium Bicarbonate/Cit Ac 20 MEQ Effervescent Tab PO SCH (08:04)
[2023-02-22] MEDS: Hydroxychloroquine 200 MG Tab PO SCH (08:04)
[2023-02-22] MEDS: Pantoprazole 40 MG Tab.CR PO SCH (08:04)
[2023-02-22] MEDS: Colchicine 0.6 MG Tab PO SCH (08:04)
[2023-02-22] MEDS: Magnesium Oxide 400 MG Tab PO SCH ×2 (08:04→20:32)
[2023-02-22] MEDS: Carboxymethylcellulose Sodium 1% Ophth Gel 15 ML Bottle EYEBOTH SCH ×2 (08:23→20:32)
[2023-02-22 09:31] LABS: HEMOGLOBIN 7.7 gm/dl (11.2-15.7); MEAN CORPUSCULAR HEMOGLOBIN 28.1 pg (25.6-32.2); MEAN CORPUSCULAR VOLUME 87.6 fl (79.4-94.8); RED BLOOD CELL COUNT 2.74 M/mm3 (3.98-5.22); WHITE BLOOD CELL COUNT,WBC 14.49 K/mm3 (3.98-10.04)
[2023-02-22 09:32] LABS: MEAN CORPUSCULAR HGB CONC 32.1 g/dl (32.2-35.5); MEAN PLATELET VOLUME 11.7 fl (9.4-12.3); PLATELET COUNT,PLT 111 K/mm3 (182-369)
[2023-02-22 09:40] LABS: BAND PERCENT MAN 14 % (0-10); BASOPHILS PERCENT MAN 1 (0.1-1.2); BLASTS PERCENT MAN 5; EOSINOPHILS PERCENT MAN 0 % (0.7-5.8); LYMPHOCYTES % ATYPICAL MANUAL 4 %; LYMPHOCYTES PERCENT MAN 6 % (20-40); MONOCYTES PERCENT MAN 43 % (2-10)
[2023-02-22 09:42] LABS: ACANTHOCYTES 1+ SLIGHT; ANISOCYTOSIS 1+ SLIGHT; PLATELET COUNT ESTIMATE DECREASED; ROULEAUX 1+ SLIGHT
[2023-02-22] MEDS ORDERED: Sodium Chloride 0.9% 10 ML Syringe FLUSH PRN ×2 (09:55→09:56)
[2023-02-22] MEDS ORDERED: Iopamidol 755 Mg/ML 100 ML Bottle IVPUSH ONE ×2 (09:55→09:56)
[2023-02-22] MEDS ORDERED: Piperacillin/Tazobactam 4.5 GM in Sodium Chloride 0.9% 100 ML IV ONE (10:00)
[2023-02-22] MEDS ORDERED: Sodium Chloride 0.9% 100 ML IV SCH ×2 (10:00)
[2023-02-22] MEDS: Sodium Chloride 0.9% 1,000 ML IV SCH (10:34)
[2023-02-22] MEDS ORDERED: VANCOmycin 1.25 GM/250 ML 1.25 GM in Premix Bag 1 BAG IV SCH (11:00)
[2023-02-22 11:38] LABS: LACTIC ACID 1.3 mmol/L (0.4-2.0)
[2023-02-22] MEDS: oxyCODONE 5 MG Tab PO PRN (18:35)
[2023-02-22] MEDS: Acetaminophen 325 MG Tab PO PRN (18:36)
[2023-02-22] MEDS: Piperacillin/Tazobactam 4.5 GM in Sodium Chloride 0.9% 100 ML IV SCH (20:20)
[2023-02-22] MEDS: Nortriptyline 25 MG Cap PO SCH (20:32)
[2023-02-22] MEDS: ClonazePAM 1 MG Tab PO SCH (20:32)
[2023-02-22] MEDS: HYDROmorphone 0.5 MG/0.5 ML Syringe IVPUSH PRN (22:58)
[2023-02-23] MEDS ORDERED: Levofloxacin/Dextrose 5%-Water 750 MG in Premix Bag 1 BAG IV SCH (00:30)
[2023-02-23] MEDS: oxyCODONE 5 MG Tab PO PRN (01:23)
[2023-02-23] MEDS: Heparin Sodium 5,000 Units/ML Vial SUBCUT SCH (01:23)
[2023-02-23] MEDS: Acetaminophen 325 MG Tab PO PRN (02:34)
[2023-02-23] MEDS: Piperacillin/Tazobactam 4.5 GM in Sodium Chloride 0.9% 100 ML IV SCH (04:03)
[2023-02-23] MEDS: HYDROmorphone 0.5 MG/0.5 ML Syringe IVPUSH PRN (04:04)
[2023-02-23] MEDS ORDERED: HYDROmorphone 0.5 MG/0.5 ML Syringe IVPUSH PRN (06:00)
[2023-02-23] MEDS: predniSONE 20 MG Tab PO SCH (06:25)
[2023-02-23 06:53] LABS: HEMOGLOBIN 7.9 gm/dl (11.2-15.7); MEAN CORPUSCULAR HEMOGLOBIN 27.7 pg (25.6-32.2); MEAN CORPUSCULAR HGB CONC 31.6 g/dl (32.2-35.5); MEAN CORPUSCULAR VOLUME 87.7 fl (79.4-94.8); PLATELET COUNT,PLT 87 K/mm3 (182-369); RED BLOOD CELL COUNT 2.85 M/mm3 (3.98-5.22); WHITE BLOOD CELL COUNT,WBC 20.83 K/mm3 (3.98-10.04)
[2023-02-23 07:27] LABS: A/G RATIO 0.3 (1-2); ANION GAP 11.6 (5-15); BILIRUBIN TOTAL 0.3 mg/dL (0.2-1.0); CALCIUM 8.1 mg/dL (8.5-10.1); CREATININE 1.1 mg/dL (0.55-1.02); EST CRCL DRUG DOSING (CG) 29.79 mL/min; POTASSIUM,K 3.6 mEq/L (3.5-5.1); PROTEIN TOTAL,TP 4.7 g/dl (6.4-8.2); VANCOMYCIN RANDOM 10.3 ug/mL
[2023-02-23 09:53] LABS: BAND PERCENT MAN 3 % (0-10); BASOPHILS PERCENT MAN 0 (0.1-1.2); BLASTS PERCENT MAN 9; EOSINOPHILS PERCENT MAN 2 % (0.7-5.8); LYMPHOCYTES % ATYPICAL MANUAL 10 %; LYMPHOCYTES PERCENT MAN 4 % (20-40); METAMYELOCYTE PERCENT MAN 1; MONOCYTES PERCENT MAN 35 % (2-10); MYELOCYTE PERCENT MAN 9; PROMYELOCYTE PERCENT MAN 1
[2023-02-23] MEDS ORDERED: fentaNYL 100 MCG/2 ML SDV IVPUSH PRN ×2 (09:53→11:01)
[2023-02-23] MEDS ORDERED: LORazepam 2 MG/ML SDV IVPUSH PRN (09:53)
[2023-02-23] MEDS ORDERED: Glycopyrrolate 0.2 MG/ML SDV IVPUSH PRN ×2 (09:54→10:34)
[2023-02-23 09:55] LABS: ACANTHOCYTES 1+ SLIGHT; ANISOCYTOSIS 2+ MODERATE; HYPOCHROMASIA 1+ SLIGHT; POIKILOCYTOSIS 1+ SLIGHT; POLYCHROMASIA 2+ MODERATE; SCHISTOCYTES 1+ SLIGHT
[2023-02-23 09:56] LABS: PLATELET COUNT ESTIMATE DECREASED; ROULEAUX 1+ SLIGHT
[2023-02-23] MEDS ORDERED: fentaNYL 50 MCG/HR Transdermal Patch TRDERM SCH (10:00)
[2023-02-23] MEDS ORDERED: fentaNYL 100 MCG/2 ML SDV IVPUSH ONE (10:55)
[2023-02-23] MEDS ORDERED: LORazepam 2 MG/ML SDV IVPUSH ONE ×2 (10:55→11:38)
[2023-02-23] MEDS ORDERED: HYDROmorphone 1 MG/ML Syringe IVPUSH ONE (11:38)
[2023-02-23] MEDS: HYDROmorphone 1 MG/ML Syringe IVPUSH PRN ×6 (13:05→23:12)
[2023-02-23] MEDS: LORazepam 2 MG/ML SDV IVPUSH PRN (23:14)
[2023-02-24] MEDS: Colchicine 0.6 MG Tab PO SCH (02:59)
[2023-02-24] MEDS: Potassium Bicarbonate/Cit Ac 20 MEQ Effervescent Tab PO SCH (02:59)
[2023-02-24] MEDS: Pantoprazole 40 MG Tab.CR PO SCH (03:00)
[2023-02-24] MEDS: Ferrous Sulfate 324 MG Tab.EC PO SCH (03:00)
[2023-02-24] MEDS: Magnesium Oxide 400 MG Tab PO SCH (03:00)
[2023-02-24] MEDS: Hydroxychloroquine 200 MG Tab PO SCH (03:00)
[2023-02-24] MEDS: Sertraline 50 MG Tab PO SCH (03:00)
[2023-02-24] MEDS: Multivitamin Tab PO SCH (03:00)
[2023-02-24] MEDS: Carboxymethylcellulose Sodium 1% Ophth Gel 15 ML Bottle EYEBOTH SCH (03:00)
[2023-02-24] MEDS: Acetaminophen 325 MG Tab PO SCH (03:00)
[2023-02-24] MEDS: HYDROmorphone 1 MG/ML Syringe IVPUSH PRN ×8 (04:11→23:35)
[2023-02-24] MEDS: LORazepam 2 MG/ML SDV IVPUSH PRN ×5 (04:16→22:28)
[2023-02-24 20:45] VITALS: BP 118/63; PULSE 100
== END 2023-02-24 23:48 | disposition expired | DRG 682 ==
LOC: JD.ED 03:31 → JD.ICU 12:51 → UNDOADMOB 12:51 → JD.MS 02-08 09:25 → UNDOADMOB 02-08 09:25 → OBSVTOIN 02-08 09:25 → INTOOBSV 02-08 09:25 → JD.MS 02-08 09:26 → JD.ICU 02-15 14:22 → JD.MS 02-17 09:00 → INTOOBSV 02-17 18:37 → JD.ICU 02-17 18:37 → UNDOADMOB 02-17 18:37 → JD.ICU 02-17 18:37 → OBSVTOIN 02-17 18:37 → JD.MS 02-17 18:37 → UNDODISIN 02-24 23:48
PROVIDERS: ADMIT Internal Medicine; ATTEND Internal Medicine
DX: R53.1 Weakness (principal); N17.9 Acute kidney failure, unspecified; R29.6 Repeated falls; Z74.1 Need for assistance with personal care; M06.9 Rheumatoid arthritis, unspecified; A41.59 Other Gram-negative sepsis; T83.511A Infection and inflammatory reaction due to indwelling urethral catheter, initial encounter; N39.0 Urinary tract infection, site not specified; W19.XXXA Unspecified fall, initial encounter; J69.0 Pneumonitis due to inhalation of food and vomit; J96.01 Acute respiratory failure with hypoxia; Z68.1 Body mass index [BMI] 19.9 or less, adult; E87.1 Hypo-osmolality and hyponatremia; D84.821 Immunodeficiency due to drugs; R62.7 Adult failure to thrive; Z51.5 Encounter for palliative care; B96.4 Proteus (mirabilis) (morganii) as the cause of diseases classified elsewhere; M05.79 Rheumatoid arthritis with rheumatoid factor of multiple sites without organ or systems involvement; F41.9 Anxiety disorder, unspecified; Z66 Do not resuscitate; F32.A Depression, unspecified; M34.9 Systemic sclerosis, unspecified; E87.6 Hypokalemia; E83.52 Hypercalcemia; E83.42 Hypomagnesemia; K11.20 Sialoadenitis, unspecified; E86.0 Dehydration; K44.9 Diaphragmatic hernia without obstruction or gangrene; R53.81 Other malaise; D64.9 Anemia, unspecified; K22.4 Dyskinesia of esophagus; K21.9 Gastro-esophageal reflux disease without esophagitis; Z79.899 Other long term (current) drug therapy; Z85.42 Personal history of malignant neoplasm of other parts of uterus; Z88.1 Allergy status to other antibiotic agents; Z87.19 Personal history of other diseases of the digestive system; Z98.42 Cataract extraction status, left eye; Z98.41 Cataract extraction status, right eye; Z90.710 Acquired absence of both cervix and uterus; Z90.722 Acquired absence of ovaries, bilateral; Z98.890 Other specified postprocedural states; W18.30XA Fall on same level, unspecified, initial encounter; Y84.6 Urinary catheterization as the cause of abnormal reaction of the patient, or of later complication, without mention of misadventure at the time of the procedure; Y92.009 Unspecified place in unspecified non-institutional (private) residence as the place of occurrence of the external cause
CPT/HCPCS: 36415 ×3; 70450; 71045; 72125; 73030; 73090 ×2; 73130; 73502 ×2; 80048 ×2; 80053; 81001; 84484; 85025 ×3; 93005; 96372 ×4; 96374; 96376 ×3; 97162; 97530; 99285; A9270 ×34; G0378 ×4; J1170 ×8; J1644 ×6; J1885; J7030 ×3; 51701; 51702; 51798; 70490; 70490-26; 71275; 71275-26; 80202; 82272; 82947; 83605; 83615; 83735; 83930; 84132; 84550; 85007; 85027; 85610; 85652; 85730; 86038; 86140; 86431; 86850; 86900; 86901; 87040; 87086; 87088; 87186; 87493; 88184; 92610-GN; 93010; 94640; 94760; 94761; 97110-GP; 97166-GO; 99223; 99232; 99233; 99284; J0696; J1940; J1956; J2060; J2543; J3010; J3370; J3475; J3480; J3489; J3490; J7512; J7620-GY; Q9967